=== PATIENT | female | born 1935 | race Caucasian/White ===

== ENCOUNTER → 2023-04-14 10:21 | Outpatient (REF) | payer MEDICARE, SELFPAY ==
[2023-04-14 11:46] LABS: % Basophils 0.9 % (0-2); % Eosinophils 2.9 % (0-6); % Immature Granulocytes 0.3 % (0-0.5); % Lymphocytes 17.4 % (20.5-51.1); % Monocytes 9.9 % (1.7-9.3); % Neutrophils 68.6 % (42.2-75.2); Absolute Basophils 0.1 10^3/uL (0-0.2); Absolute Eosinophils 0.3 10^3/uL (0-0.7); Absolute Lymphocytes 1.6 10^3/uL (1.2-3.4); Absolute Monocytes 0.9 10^3/uL (0.1-0.6); Absolute Neutrophils 6.2 10^3/uL (1.4-6.5); Hematocrit 28.2 % (37.0-47.0); Hemoglobin 8.6 g/dL (12.0-16.0); Mean Corp Hgb Conc. 30.5 g/dL (33.0-37.0); Mean Corpuscular Hgb 23.5 pg (27.0-31.0); Nucleated Red Blood Cells % 0.2 %; Platelet Count 327 10^3/uL (130-400); Red Blood Cell Count 3.66 10^6/uL (4.20-5.40); Red Cell Dist. Width 17.2 % (11.5-14.5)
[2023-04-14 12:13] LABS: ALT (SGPT) 13 U/L (0-35); AST (SGOT) 22 U/L (14-36); Albumin 3.9 g/dl (3.5-5.0); Alkaline Phosphatase 115 U/L (38-126); Blood Urea Nitrogen 25 mg/dl (7-17); Calcium 9.5 mg/dl (8.4-10.2); Carbon Dioxide 25 mmol/L (22-30); Chloride 102 mmol/L (98-107); Glucose 104 mg/dl (70-99); HDL Cholesterol 64 mg/dl; LDL Cholesterol, Calculated 93 mg/dl; Potassium 5.6 mmol/L (3.5-5.1); Sodium 136 mmol/L (135-145); Total Bilirubin 0.7 mg/dl (0.2-1.3); Total Cholesterol 177 mg/dl (50-199); Total Protein 6.6 g/dl (6.3-8.2); Triglyceride 100 mg/dl (10-149); Very Low Density Lipoprotein 20 mg/dl (0-30); eGFR > 60.00
[2023-04-15 12:17] LABS: Iron 28 ug/dl (37-170)
[2023-04-15 12:26] LABS: Percent Saturation 5 % (20-50); Total Iron Binding Capacity 477 ug/dl (265-497)
[2023-04-15 15:34] LABS: Ferritin 7.6 ng/ml (11.1-264.0)
== END ==
LOC: REG 10:21
PROVIDERS: ATTENDING PHYSICIAN Internal Medicine
DX: I10 Essential (primary) hypertension (principal); E78.5 Hyperlipidemia, unspecified; R53.83 Other fatigue
CPT/HCPCS: 36415; 80053; 80061; 82728; 83540; 83550; 85025

== ENCOUNTER → 2023-04-16 09:27 | Outpatient (REF) | payer MEDICARE, SELFPAY | LOC: DHCBS MAIN 09:27 | PROVIDERS: ATTENDING PHYSICIAN Internal Medicine Cardiovascular Disease; FAMILY PHYSICIAN Internal Medicine | DX: I10 Essential (primary) hypertension (principal) | CPT/HCPCS: 93306 ==

== ENCOUNTER → 2023-05-19 11:23 | Outpatient (REF) | payer MEDICARE, SELFPAY ==
[2023-05-19 12:19] LABS: % Basophils 0.9 % (0-2); % Eosinophils 2.5 % (0-6); % Immature Granulocytes 0.3 % (0-0.5); % Lymphocytes 14.8 % (20.5-51.1); % Monocytes 7.5 % (1.7-9.3); Absolute Basophils 0.1 10^3/uL (0-0.2); Absolute Eosinophils 0.2 10^3/uL (0-0.7); Absolute Lymphocytes 1.1 10^3/uL (1.2-3.4); Absolute Monocytes 0.6 10^3/uL (0.1-0.6); Absolute Neutrophils 5.7 10^3/uL (1.4-6.5); Hemoglobin 10.8 g/dL (12.0-16.0); Mean Corpuscular Hgb 24.8 pg (27.0-31.0); Mean Corpuscular Volume 82.6 fL (81.0-99.0); Mean Platelet Volume 11.6 fL (7.4-10.4); Nucleated Red Blood Cells % 0 %; Platelet Count 328 10^3/uL (130-400); Red Blood Cell Count 4.36 10^6/uL (4.20-5.40); Red Cell Dist. Width 22.7 % (11.5-14.5); White Blood Cell Count 7.6 10^3/uL (4.8-10.8)
[2023-05-19 13:06] LABS: Total Iron Binding Capacity 393 ug/dl (265-497)
[2023-05-19 13:09] LABS: Anisocytosis 1+; Normal RBC Morphology No; Poikilocytosis 1+
[2023-05-19 13:10] LABS: Burr Cells Slight; Target Cells Slight
[2023-05-19 13:33] LABS: Ferritin 19.7 ng/ml (11.1-264.0)
== END ==
LOC: REG 11:23
PROVIDERS: ATTENDING PHYSICIAN Internal Medicine
DX: D64.9 Anemia, unspecified (principal)
CPT/HCPCS: 36415; 82728; 83550; 85025

== ENCOUNTER 2023-06-12 21:21 | Inpatient (IN) | payer MEDICARE, SELFPAY ==
[2023-06-12] VITALS (7 sets, daily range): BP systolic 106–127; BP diastolic 67–94; BMI 25.8
[2023-06-12 17:04] LABS: % Basophils 0.8 % (0-2); % Eosinophils 1.6 % (0-6); % Immature Granulocytes 0.3 % (0-0.5); % Lymphocytes 14.6 % (20.5-51.1); % Neutrophils 73.7 % (42.2-75.2); Absolute Basophils 0.1 10^3/uL (0-0.2); Absolute Eosinophils 0.2 10^3/uL (0-0.7); Absolute Lymphocytes 1.4 10^3/uL (1.2-3.4); Absolute Monocytes 0.9 10^3/uL (0.1-0.6); Absolute Neutrophils 7.2 10^3/uL (1.4-6.5); Hematocrit 34.4 % (37.0-47.0); Hemoglobin 10.7 g/dL (12.0-16.0); Mean Corp Hgb Conc. 31.1 g/dL (33.0-37.0); Mean Corpuscular Hgb 25.5 pg (27.0-31.0); Mean Corpuscular Volume 82.1 fL (81.0-99.0); Mean Platelet Volume 10.5 fL (7.4-10.4); Nucleated Red Blood Cells % 0 %; Platelet Count 389 10^3/uL (130-400); Red Blood Cell Count 4.19 10^6/uL (4.20-5.40); Red Cell Dist. Width 21.3 % (11.5-14.5); White Blood Cell Count 9.7 10^3/uL (4.8-10.8)
[2023-06-12 17:26] LABS: ALT (SGPT) 43 U/L (0-35); AST (SGOT) 54 U/L (14-36); Albumin 4.5 g/dl (3.5-5.0); Alkaline Phosphatase 131 U/L (38-126); Blood Urea Nitrogen 30 mg/dl (7-17); Calcium 9.7 mg/dl (8.4-10.2); Carbon Dioxide 19 mmol/L (22-30); Glucose 135 mg/dl (70-99); Total Bilirubin 0.7 mg/dl (0.2-1.3); Total Protein 7.2 g/dl (6.3-8.2); eGFR 54.87
[2023-06-12 17:35] LABS: Chloride 101 mmol/L (98-107); Potassium 5.4 mmol/L (3.5-5.1); Sodium 134 mmol/L (135-145)
[2023-06-12 18:38] LABS: D-Dimer 1.33 ug/mlFEU (0.00-0.50)
[2023-06-12] MEDS: CARDIZEM CD 120 MG PO (19:06)
[2023-06-12] MEDS: NSS 500 IV (19:06)
[2023-06-12 19:28] LABS: TSH Reflex To Free T4 4.67 uIU/ml (0.47-4.68)
--- NOTE | 2023-06-12 19:52 | ED.GENMED ---
History of Present Illness
General
Chief Complaint: Weakness
Source: patient
Exam Limitations: none
Time Seen by Provider: 06/12/23 18:19
Nursing documentation reviewed up to this point in time: agreed with
Travel History
Have you had any contact with someone who has COVID-19?: No
Do you have any symptoms of coronavirus? Fever > 100 degrees, chills, cough, shortness of breath, sore throat, loss of taste or smell, muscle aches, or headache?: No
History of Present Illness
History of Present Illness:
88-year-old female with past medical history of A-fib currently on Xarelto diltiazem and metoprolol, hypertension hyperlipidemia presenting to the emergency department today with concerns of feeling generally weak over the past 5 to 6 days. She
denies any changes in medications has had an ongoing cough. Primary care doctor was concerned of PE. Denies nausea vomiting or additional recent illness did have a mild cough recently.
Past History
Past History
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
ED Past Surgical History: Appendectomy and Other (Colonoscopy)
Social History
Tobacco: Non-smoker
Alcohol: None
Personal:
Living: with family
Employment: Retired
Family History
Family History: Other (Noncontributory)
Review of Systems
Review of Systems
Allergies reviewed?: Yes
All Other Systems: ROS reviewed and negative except as documented in HPI and ROS
Phy Exam
Physical Exam
Physical Exam:
GENERAL: Alert , in no apparent distress
EYE: pupils equal and reactive
NECK: Supple, no significant adenopathy.
ENT: o/p clr, mmm.
CARDIAC: Regular rate and rhythm .
LUNGS: Clear breath sounds bilaterally, no acute respiratory distress, no wheezes/rales/rhonchi
ABDOMEN: Soft, without focal tenderness, no r/g, no cvat
NEUROLOGICAL: Alert and oriented, no focal neuro deficits
SKIN: Warm and dry, skin intact.
MUSCULOSKELETAL: No edema, well perfused.
PSYCH: Normal and appropriate interaction.
Course
Orders/Labs/Results
Orders:
Orders
06/12/23 16:51
EKG [Electrocardiogram (*1)] Urgent
Reason for Study: Fatigue / Weakness
06/12/23 16:52
EKG- Treatment ONCE
06/12/23 16:59
CBC/With Diff [Complete Blood Count/With Diff] Urgent
CMP [Comprehensive Metabolic Panel] Urgent
TSH Reflex To Free T4 Urgent
Comment: ADD ON
06/12/23 18:00
D-Dimer Urgent
06/12/23 18:21
Add On- LAB Urgent
Tests Added?: tsh free t4
06/12/23 18:[address] [CT Chest Pe Study] Urgent
Comment:
Reason For Exam: cp, sob, tachy, PCP snet in for PE scan
06/12/23 18:41
Diltiazem Extended Release [Cardizem Cd] 120 mg PO NOW STA
06/12/23 18:42
0.9% Sodium Chloride 500 ml [Nss] 500 ml IV BOLUS
06/12/23 19:47
NT-proBNP Urgent
Comment: ADD ON
Troponin I Urgent
06/12/23 20:11
Electrocardiogram (*1) Urgent
Reason for Study: QTc Monitoring
EKG- Treatment ONCE
06/12/23 20:17
Add On- LAB Urgent
Tests Added?: BNP
06/12/23 20:18
Urinalysis Reflex To Culture Urgent
Date Specimen was Collected: 06/12/23
Time Specimen was Collected: 20:17
Urine Microscopic Reflex Cult Urgent
Urine Culture Urgent
TANNER Source: U
Specimen Description:
Date Specimen was Collected: 06/12/23
Time Specimen was Collected: 20:17
06/12/23 20:21
Furosemide [Lasix] 40 mg IV NOW STA
Abnormal Lab Results
06/12/23 06/12/23 06/12/23
16:59 18:00 20:18
RBC 4.19 L 10^6/uL
(4.20-5.40)
Hgb 10.7 L g/dL
(12.0-16.0)
Hct 34.4 L %
(37.0-47.0)
MCH 25.5 L pg
(27.0-31.0)
MCHC 31.1 L g/dL
(33.0-37.0)
RDW 21.3 H %
(11.5-14.5)
MPV 10.5 H fL
(7.4-10.4)
Absolute Neuts (auto) 7.2 H 10^3/uL
(1.4-6.5)
Absolute Monos (auto) 0.9 H 10^3/uL
(0.1-0.6)
Lymphocytes % 14.6 L %
(20.5-51.1)
D-Dimer 1.33 H ug/mlFEU
(0.00-0.50)
Sodium 134 L mmol/L
(135-145)
Potassium 5.4 H mmol/L
(3.5-5.1)
Carbon Dioxide 19 L mmol/L
(22-30)
BUN 30 H mg/dl
(7-17)
Glucose 135 H mg/dl
(70-99)
AST 54 H U/L
(14-36)
ALT 43 H U/L
(0-35)
Alkaline Phosphatase 131 H U/L
(38-126)
Leukocyte Esterase Rfl 1+ A
(Negative)
06/12/23 16:59
06/12/23 16:59
Vital Signs
Initial and Last Documented VS:
Initial Vital Signs
Temp Pulse Resp BP Pulse Ox
98.1 F 129 17 127/71 97
06/12/23 16:53 06/12/23 16:53 06/12/23 16:53 06/12/23 16:53 06/12/23 16:53
Last Documented Vital Signs
Temp Pulse Resp BP Pulse Ox
98.1 F 118 32 119/67 97
06/12/23 16:53 06/12/23 20:26 06/12/23 20:15 06/12/23 20:26 06/12/23 20:15
MDM/Problems Addressed
MDM/Problems Addressed:
88-year-old female presenting to the emergency department today with concerns of generalized weakness fatigue over the past 5 days or so. Upon arrival patient is mildly tachycardic in A-fib heart rate in the 120s to 90s. Hemoglobin 10.7 which is
at patient's baseline otherwise labs showing elevated BUN to creatinine ratio potentially consistent with dehydration she was given fluids for this potassium elevated to 5.4. EKG without acute abnormalities other than tachycardia, in A-fib, in
A-fib chronically. Heart rate typically in the low 100s throughout ER stay labs initially showed elevated BUN given the small amount of fluids however CT scan showing edema so fluids were stopped. She was given Lasix otherwise will be admitted for
further treatment and monitoring.
*Critical Care Note
Total Time (30-74mins, 75-104mins- exclusive of procedures): Critical care statement:
ED Attending Note
-
Portions of this chart may have been created with voice recognition software.� Occasional wrong word or��sound alike� substitutions may have occurred due to the inherent limitations of voice recognition software.
Discharge Plan
Departure
Patient Disposition: Admit
Date of Disposition: 06/12/23
Time of Disposition: 20:38
Admit to: Telemetry
Admit to doctor: pooja
Presentation/result/management discussed w/ accepting MD/DO: Hospitalist
Patient with high blood pressure during this ER visit?: No
Condition: Good
Covid-19: Not Applicable
Discharge Problem:
Heart failure
Prescriptions:
No Action
Prilosec
1 tab PO DAILY
Patient Comments:
otc
acetaminophen [Tylenol] 325 MG tablet
325 mg PO PRN PRN (Reason: pain)
atorvastatin 10 MG tablet
10 mg PO QPM
lorazepam 0.5 MG tablet
0.5 mg PO HS
diltiazem HCl 120 MG capsule,extended release 24hr
120 mg PO DAILY
doxylamine succinate [Somnised] 25 MG tablet
25 mg PO HS
escitalopram oxalate 10 MG tablet
15 mg PO DAILY
metoprolol tartrate 25 MG tablet
25 mg PO DAILY
rivaroxaban [Xarelto] 15 MG tablet
15 mg PO QPM
promethazine 25 MG tablet
12.5 mg PO Q6HPRN PRN (Reason: nausea) Qty: 10 0RF
polyethylene glycol 3350 238 GM powder
17 gm PO DAILY Qty: 1 0RF
Referrals:
Stefanie Nieves MD [Family Provider] -
Interventions
Interventions:
*Risk Screen - Suicide Last Done: 06/12/23 16:53
*General Assessment Last Done: 06/12/23 16:53
*Neglect/Abuse Screening Last Done: 06/12/23 16:53
ED- Fall Risk Assessment Last Done: 06/12/23 18:55
*ED COVID-19 Vaccine History Last Done: 06/12/23 16:53
ED- Cardiac Assessment Last Done: 06/12/23 18:55
ED- Neurological Assessment Last Done: 06/12/23 18:55
ED- Pulmonary Assessment Last Done: 06/12/23 18:55
Discharge Date and Time
Print Language: ARMENIAN
[2023-06-12 20:22] LABS: Troponin I < 0.012 ng/ml
[2023-06-12] MEDS: LASIX 40 MG IV (20:26)
[2023-06-12 20:29] LABS: Urine Albumin Trace (Neg - Trace); Urine Bilirubin Negative (Negative); Urine Character Clear (Clear); Urine Color Yellow; Urine Glucose Negative (Negative); Urine Ketone Negative (Negative); Urine Leukocyte 1+ (Negative); Urine Nitrite Negative (Negative); Urine Occult Blood Negative (Negative); Urine Specific Gravity 1.015 (<1.030); Urine Urobilinogen Negative (Neg - 1+)
[2023-06-12 20:44] LABS: Urine Bacteria Few (Negative); Urine Red Blood Cell 0-2 /HPF (0-2); Urine Squamous Cell >30 /LPF (Few)
[2023-06-12 20:51] LABS: NT-proBNP 17300 pg/ml
--- NOTE | 2023-06-12 21:16 | HPS.HSE ---
Family Physician
-
Family Physician: Stefanie Nieves
Chief Complaint
-
SOB, Fatigue
History of Present Illness
Patient is an 88y F with PMH significant for A-Fib, HTN and anxiety who presents to ED complaining of fatigue, SOB and general malaise. History obtained from patient and family at the bedside. Patient has been complaining of generalized
weakness since early March of this year. She started with fairly vague symptoms of weakness / fatigue. She was seen by her Substation Operator Chief and Echo was done in March which was only minimally changed from prior (LVEF decreased from 45 to 40%).
Patient was also evaluated by her PCP and noted to have evidence of anemia. She was started on empiric iron replacement and seemed to note some clinical improvement.
However, over the past 1-2 weeks family has noted a rather significant decline. Patient has again had general fatigue and has also been noted to have increased work of breathing, dyspnea with exertion and appears pale.
Patient was seen by her PCP today and reportedly had low SpO2 in the office. She was sent to ED for further evaluation.
While in the ED, patient apparently had an episode of syncope / near syncope. She was in the bathroom when she became lightheaded / dizzy and diaphoretic. She slumped backwards against the wall but did not fall or completely lose consciousness.
At present, patient is resting comfortably. She has no complaints of chest pain, palpitations, etc. She reports chronic / persistent nausea and relatively poor appetite. No emesis.
No fevers / chills, cough, etc.
Medical History
Past Medical History
Past Medical History: Reports Other
Additional Past Medical History:
Persistent Atrial Fibrillation
Hypertension
Anxiety / Depression
Dyslipidemia
Peripheral Neuropathy
Past Surgical History: Reports Other
Additional Past Surgical History:
Appendectomy
Social History
Tobacco: Smoker (Current every day smoker. Approx 1/2 ppd with total of > 60 pack years use.)
Alcohol: Occasional
Drug: None
Family History
Family History: Not pertinent
Allergies / Home Medications
Allergies reflects when Allergies were last updated in [facility].
Home Medications with original date entered in [facility]
Allergy/Medication List:
Allergies
Allergy/AdvReac Type Severity Reaction Status Date / Time
bacitracin [From Neosporin] Allergy MAKES WORSE Verified 02/06/19 09:32
bacitracin zinc Allergy MAKES WORSE Verified 02/06/19 09:32
[From Neosporin]
gramicidin D [From Neosporin] Allergy MAKES WORSE Verified 02/06/19 09:32
neomycin sulfate Allergy MAKES WORSE Verified 02/06/19 09:32
[From Neosporin]
Penicillins Allergy SWELLING,LUMPS-AGE Verified 02/06/19 09:32
16
polymyxin B [From Neosporin] Allergy MAKES WORSE Verified 02/06/19 09:32
polymyxin B sulfate Allergy MAKES WORSE Verified 02/06/19 09:32
[From Neosporin]
Home Medications
atorvastatin 10 mg tablet 10 mg PO QPM 10/01/18
diltiazem HCl 120 mg capsule,extended release 24 hr 120 mg PO QPM 10/01/18
lorazepam 0.5 mg tablet 0.5 mg PO BID 10/01/18
rivaroxaban 15 mg tablet (Xarelto) 15 mg PO QPM 10/01/18
doxylamine succinate 25 mg tablet (Unisom (doxylamine)) 25 mg PO HS 06/12/23
ferrous sulfate 325 mg (65 mg iron) tablet 325 mg PO DAILY 06/12/23
guar gum 1 tbsp PO DAILY 06/12/23
lamotrigine 25 mg tablet (Lamictal) 25 mg PO BID 06/12/23
metoprolol succinate 50 mg tablet,extended release 24 hr (Toprol XL) 50 mg PO DAILY 06/12/23
omeprazole magnesium 20 mg tablet,delayed release 40 mg PO DAILY 06/12/23
therapeutic multivitamin 1 tab PO DAILY 06/12/23
venlafaxine 75 mg capsule,extended release 24 hr (Effexor XR) 75 mg PO HS 06/12/23
venlafaxine 75 mg capsule,extended release 24 hr (Effexor XR) 150 mg PO DAILY 06/12/23
Review of Systems
-
History Source: Patient and Family
A 12 point ROS was completed and negative except as noted: Yes
Constitutional: Reports Fatigue; Denies Fever or Chills
EENT: Denies Sore Throat
Respiratory: Reports Trouble Breathing; Denies Cough
Cardiac: Reports Diaphoresis; Denies Chest Pain, Palpitations or Syncope
Abdomen/GI: Reports Nausea and Anorexia; Denies Abdominal Pain, Vomiting, Diarrhea or Constipated
: Denies Dysuria or Frequency
Musculoskeletal: Denies Joint Pain or Edema
Neurological: Reports Dizzy; Denies Headache
Psych: Reports Depression and Anxiety
Physical Exam
Vital Signs
Vital Signs
Temp Pulse Resp BP Pulse Ox
98.1 F 118 32 119/67 97
06/12/23 16:53 06/12/23 20:26 06/12/23 20:15 06/12/23 20:26 06/12/23 20:15
Physical Exam
General: Other (88y F pale appearing, in no acute distress.)
HEENT: Moist mucous membranes and PERRLA
Respiratory: Other (Bibasilar rales about 1/3 up. No wheeze / rhonchi.)
Cardiac: S1/S2 and Irregular Rhythm; No Murmur
GI: Soft, Non Tender, Non Distended and Normal Bowel Sounds
Musculoskeletal: No Clubbing, No Cyanosis and No Edema
Neuro: AO x 3 and Nonfocal/grossly intact
Laboratory Results
-
06/12/23 16:59
06/12/23 16:59
Laboratory Results
Total Bilirubin 0.7 mg/dl (0.2-1.3) 06/12/23 16:59
AST 54 U/L (14-36) H 06/12/23 16:59
ALT 43 U/L (0-35) H 06/12/23 16:59
Alkaline Phosphatase 131 U/L (38-126) H 06/12/23 16:59
Troponin I < 0.012 ng/ml 06/12/23 19:47
Impression/Plan
-
A/P: Patient is an 88y F with PMH significant for A-Fib, HTN and anxiety / depression who presents to ED complaining of fatigue, SOB and weakness.
Acute HFmrEF
- Admit for further evaluation and treatment.
- Reported hypoxemia in PCP office, though normal SpO2 here in the ED.
- CT scan shows R > L pleural effusions and pulmonary edema c/w CHF.
- Abnormal LFTs c/w passive hepatic congestion.
- No significant LE edema / abdominal distention / etc.
- Echo was done 04/16/23 showing LVEF = 40-45%.
- IV Lasix BID and follow I/Os, daily weights, symptoms, etc.
- Cardiology evaluation or additional recommendations.
- Hold BRYCE / ARB for now given hyperkalemia.
- Hold spironolactone for now given hyperkalemia.
Persistent Atrial Fibrillation
- Stable. Rates around 100 bpm.
- Continue metoprolol and increase dose for HR control.
- Decrease / discontinue CCB if possible in favor of increased beta-blockade to prevent negative ionotropy.
- Monitor on telemetry.
- Continue Xarelto for stroke risk reduction.
Benign Hypertension
- Stable. Continue metoprolol as noted above.
- Monitor for changes with diuresis.
Anxiety / Depression
- Stable. Continue current outpatient psychotropic medication regimen.
DVT Prophylaxis: On Xarelto
Code Status: DNR
[2023-06-12] MEDS: EFFEXOR XR 75 MG PO (23:16)
[2023-06-13] VITALS (26 sets, daily range): BP systolic 79–134; BP diastolic 54–88; PULSE 92–99; BMI 24.1; BMI 23.9
[2023-06-13 00:38] LABS: Iron 428 ug/dl (37-170)
[2023-06-13 00:45] LABS: Troponin I 0.017 ng/ml
[2023-06-13 00:48] LABS: Percent Saturation 101 % (20-50); Total Iron Binding Capacity 422 ug/dl (265-497)
[2023-06-13 03:19] LABS: Vitamin B12 370 pg/ml (239-931)
[2023-06-13 06:59] LABS: Hematocrit 31.3 % (37.0-47.0); Hemoglobin 10.4 g/dL (12.0-16.0); Mean Corp Hgb Conc. 33.2 g/dL (33.0-37.0); Mean Corpuscular Hgb 25.4 pg (27.0-31.0); Mean Corpuscular Volume 76.5 fL (81.0-99.0); Mean Platelet Volume 10.8 fL (7.4-10.4); Platelet Count 368 10^3/uL (130-400); Red Blood Cell Count 4.09 10^6/uL (4.20-5.40); Red Cell Dist. Width 21.2 % (11.5-14.5); White Blood Cell Count 9.7 10^3/uL (4.8-10.8)
[2023-06-13 07:12] LABS: ALT (SGPT) 66 U/L (0-35); AST (SGOT) 84 U/L (14-36); Albumin 4.1 g/dl (3.5-5.0); Alkaline Phosphatase 178 U/L (38-126); Blood Urea Nitrogen 28 mg/dl (7-17); Calcium 9.3 mg/dl (8.4-10.2); Carbon Dioxide 18 mmol/L (22-30); Chloride 103 mmol/L (98-107); Direct Bilirubin 0.4 mg/dl (0.0-0.4); Estimated Creatinine Clearance 39 ml/min; Glucose 98 mg/dl (70-99); Potassium 5.4 mmol/L (3.5-5.1); Sodium 134 mmol/L (135-145); Total Bilirubin 0.8 mg/dl (0.2-1.3); Total Cholesterol 162 mg/dl (50-199); Total Protein 6.9 g/dl (6.3-8.2); Triglyceride 95 mg/dl (10-149); Very Low Density Lipoprotein 19 mg/dl (0-30); eGFR > 60.00
[2023-06-13 07:23] LABS: Troponin I 0.017 ng/ml
[2023-06-13] MEDS: LAMICTAL 25 MG PO ×2 (08:42→21:08)
[2023-06-13] MEDS: PROTONIX 40 MG PO (08:42)
[2023-06-13] MEDS: LASIX 20 MG IV ×2 (08:42→16:11)
[2023-06-13] MEDS: TOPROL XL 50 MG PO ×2 (08:43→21:10)
[2023-06-13] MEDS: ATIVAN 0.5 MG PO ×2 (08:43→21:10)
--- NOTE | 2023-06-13 11:47 | CON.CAR ---
Addendum entered and electronically signed by Louisa Taylor DO 06/13/23 13:58:
I saw and examined the patient.
The Clearing [employer] Worker's note was reviewed and I agree with the note.
Comment: Seen and examined in ED bed 20 with daughter at bedside. Patient is an 88-year-old female with past medical history significant for permanent atrial fibrillation on chronic anticoagulation with Xarelto, chronic heart failure with reduced
ejection fraction, hypertension, left bundle branch block, mild mitral regurgitation, tobacco abuse who presented to emergency department 06/12/2023 with family after complaints of generalized malaise, fatigue and shortness of breath. Patient had
been at her primary care physician who had noted her to be short of breath and hypoxic and was sent to the emergency department for evaluation. proBNP elevated at 17,300. CT chest demonstrated bilateral pleural effusions right greater than left
with interstitial pulmonary edema and moderate to large paraesophageal hiatal hernia. LFTs and potassium were noted to be elevated. Troponin x 2 negative. EKG showed atrial fibrillation with rapid ventricular response. Patient was provided 40 mg
IV in emergency department. Of note while in the emergency department patient did have near syncopal event which occurred while she was in the bathroom and she became dizzy lightheaded and diaphoretic. She slumped backwards against the wall but
did not fall or lose consciousness.
GEN: No distress, awake, Ox3
HEENT: mmm
LUNGS: Decreased breath sounds at bilateral bases with few scattered crackles otherwise CTA, no wheezes/rales
CV: Irregularly irregular, tachycardic, S1/S2, 1/6 syst murmur
ABD: soft, BS+, NT/ND
EXT: Trace lower extremity edema
Plan:
Presented 06/12/2023 with generalized malaise, fatigue and shortness of breath.
Acute on chronic heart failure with reduced ejection fraction, proBNP 17,300
-Continue gentle diuresis with IV Lasix 20 mg BID
-Patient reports she is feeling significantly better with improved shortness of breath and is making good urine.
-Kidney function stable BUN/creatinine 28/ 0.9
-Recent echo from March 2023 noted above. No need to repeat
-Continue Toprol
-Consider addition of BRYCE inhibitor if potassium improved
Permanent atrial fibrillation
-Heart rate initially elevated on presentation however has improved with diuresis
-Continue metoprolol for rate control
-Continue on chronic anticoagulation on Xarelto 15 mg daily (creatinine clearance 45 based on age, weight 139, creatinine 0.9)
-TSH 4.61
Iron deficiency anemia on Xarelto
-Heme check stools
Abnormal LFTs
-Likely passive hepatic congestion.
-Continue to monitor and trend with diuresis
Electrolyte disturbance
-Hyperkalemia K 5.4. Monitor and trend with diuresis
-Sodium 134, continue to monitor and trend with diuresis
Near syncopal event in emergency department
-Orthostatic vitals checked 06/13/2023 supine 100/70, sitting 122/85, standing 79/65.
-Consider utilizing compression stockings
-PT OT assessment
Original Note:
Consultation
Consultation Request
Date/Time Consultation Requested: 06/12/2023
Date/Time Consultation Performed: 06/13/2023
Requesting Provider: Dr. Self
Performing Provider: Caitlin Buchanan PA-C for Dr. Louisa Taylor
Reason for Consultation: Shortness of breath, acute heart failure
Medical History
-
History of Present Illness:
Patient is an 88-year-old female with past medical history significant for permanent atrial fibrillation on chronic anticoagulation with Xarelto, chronic heart failure with reduced ejection fraction, hypertension, left bundle branch block, mild
mitral regurgitation, tobacco abuse who presented to emergency department 06/12/2023 with family after complaints of generalized malaise, fatigue and shortness of breath. Patient had been at her primary care physician who had noted her to be short
of breath and hypoxic and was sent to the emergency department for evaluation. proBNP elevated at 17,300. CT chest demonstrated bilateral pleural effusions right greater than left with interstitial pulmonary edema and moderate to large
paraesophageal hiatal hernia. LFTs and potassium were noted to be elevated. Troponin x 2 negative. EKG showed atrial fibrillation with rapid ventricular response. Patient was provided 40 mg IV in emergency department. Of note while in the
emergency department patient did have near syncopal event which occurred while she was in the bathroom and she became dizzy lightheaded and diaphoretic. She slumped backwards against the wall but did not fall or lose consciousness.
At the time of this evaluation patient resting comfortably in bed not requiring oxygen. She reports her shortness of breath has improved significantly. She reports she is making good urine.
PMH:
Permanent Atrial Fibrillation
Chronic anticoagulation with Xarelto
Hypertension
Left bundle branch block
Mitral regurgitation
Tobacco abuse
GERD with hiatal hernia
Anxiety / Depression
Dyslipidemia
Peripheral Neuropathy
Bowel obstruction 2019
Appendectomy
Past Medical History
Past Medical History: Other (See HPI)
Past Surgical History: Appendectomy
Social History
Tobacco: Smoker (Currently light smoker, greater than [id number] history)
Alcohol: Occasional
Drug: None
Personal:
Living: With Family
Family History
Family History: CAD, Cancer and Hypertension
Allergies / Home Medications
Allergy/AdvReac Type Severity Reaction Status Date / Time
bacitracin [From Neosporin] Allergy MAKES WORSE Verified 02/06/19 09:32
bacitracin zinc Allergy MAKES WORSE Verified 02/06/19 09:32
[From Neosporin]
gramicidin D [From Neosporin] Allergy MAKES WORSE Verified 02/06/19 09:32
neomycin sulfate Allergy MAKES WORSE Verified 02/06/19 09:32
[From Neosporin]
Penicillins Allergy SWELLING,LUMPS-AGE Verified 02/06/19 09:32
16
polymyxin B [From Neosporin] Allergy MAKES WORSE Verified 02/06/19 09:32
polymyxin B sulfate Allergy MAKES WORSE Verified 02/06/19 09:32
[From Neosporin]
�Medication �Instructions �Recorded �Confirmed �Type
atorvastatin 10 mg tablet 10 mg PO QPM 10/01/18 06/12/23 History
diltiazem HCl 120 mg 120 mg PO QPM 10/01/18 06/12/23 History
capsule,extended release 24 hr
lorazepam 0.5 mg tablet 0.5 mg PO BID 10/01/18 06/12/23 History
rivaroxaban 15 mg tablet (Xarelto) 15 mg PO QPM 10/01/18 06/12/23 History
doxylamine succinate 25 mg tablet 25 mg PO HS 06/12/23 06/12/23 History
(Unisom (doxylamine))
ferrous sulfate 325 mg (65 mg 325 mg PO DAILY 06/12/23 06/12/23 History
iron) tablet
guar gum 1 tbsp PO DAILY 06/12/23 06/12/23 History
lamotrigine 25 mg tablet (Lamictal) 25 mg PO BID 06/12/23 06/12/23 History
metoprolol succinate 50 mg 50 mg PO DAILY 06/12/23 06/12/23 History
tablet,extended release 24 hr
(Toprol XL)
omeprazole magnesium 20 mg 40 mg PO DAILY 06/12/23 06/12/23 History
tablet,delayed release
therapeutic multivitamin 1 tab PO DAILY 06/12/23 06/12/23 History
venlafaxine 75 mg capsule,extended 75 mg PO HS 06/12/23 06/12/23 History
release 24 hr (Effexor XR)
venlafaxine 75 mg capsule,extended 150 mg PO DAILY 06/12/23 06/12/23 History
release 24 hr (Effexor XR)
Review of Systems
-
History Source: Patient
All other systems: Negative unless noted
Physical Exam
Vital Signs
Temp Pulse Resp BP Pulse Ox
98 F 88 18 130/88 94
06/13/23 08:51 06/13/23 08:51 06/13/23 08:51 06/13/23 08:51 06/13/23 08:51
GEN: No distress, awake, Ox3
HEENT: supple, anicteric, mmm
LUNGS: Decreased breath sounds at bilateral bases with few scattered crackles otherwise CTA, no wheezes/rales
CV: Irregularly irregular, tachycardic, S1/S2, 1/6 syst murmur no rubs or gallops
ABD: soft, BS+, NT/ND
EXT: Trace lower extremity edema, no clubbing or cyanosis
NEURO: Gross non-focal
SKIN: No rash warm, dry, pink
Lab Results
06/13/23 06:44
06/13/23 06:43
Troponin I 0.017 ng/ml 06/13/23 06:44
Wrc-B-Dcyiffuqicj Pept 59305 pg/ml 06/12/23 19:47
Impression / Plan
-
PCP: Stefanie Nieves
[employer] Dr. Joanna Argueta
Impression:
Presented 06/12/2023 with generalized malaise, fatigue and shortness of breath
Acute on chronic heart failure with reduced ejection fraction, proBNP 17,300
Abnormal LFTs
Electrolyte disturbance
Near syncopal event in emergency department
Permanent Atrial Fibrillation
Chronic anticoagulation with Xarelto
Hypertension
Left bundle branch block
Mitral regurgitation
Chronic anemia
Tobacco abuse
GERD with hiatal hernia
Anxiety / Depression
Dyslipidemia
Peripheral Neuropathy
Bowel obstruction 2018
Appendectomy
Lexiscan nuclear stress test 03/21/2022: No fixed or reversible defects.
Echo 04/16/2023: TDS with endocardial definition. EF 41% by Cordon method, 40 to 45% by visual assessment. Mild global hypokinesis. Abnormal paradoxical septal motion consistent with left bundle branch block. Mild to moderate MR. Mild TR. PAP
34 mmHg. Compared to study February 2022 ejection fraction has declined slightly from 45 to 50% prior
cardiac catheterization 05/2015 with 20% RCA lesion and normal LV function
Plan:
Presented 06/12/2023 with generalized malaise, fatigue and shortness of breath.
Acute on chronic heart failure with reduced ejection fraction, proBNP 17,300
-Continue gentle diuresis with IV Lasix 20 mg BID. Consider transition to oral Lasix within next 24 hours
-Patient reports she is feeling significantly better with improved shortness of breath and is making good urine.
-Kidney function stable BUN/creatinine 28/ 0.9
-Recent echo from March 2023 noted above. No need to repeat
-Continue Toprol
-Consider addition of BRYCE inhibitor if potassium improved
Permanent atrial fibrillation
-Heart rate initially elevated on presentation however has improved with diuresis
-Continue metoprolol for rate control
-Continue on chronic anticoagulation on Xarelto 15 mg daily (creatinine clearance 45 based on age, weight 139, creatinine 0.9)
-TSH 4.61
Abnormal LFTs
-Likely passive hepatic congestion.
-Continue to monitor and trend with diuresis
Electrolyte disturbance
-Hyperkalemia K 5.4. Monitor and trend with diuresis
-Sodium 134, continue to monitor and trend with diuresis
Near syncopal event in emergency department
-Orthostatic vitals checked 06/13/2023 supine 100/70, sitting 122/85, standing 79/65.
-Consider utilizing compression stockings
-PT OT assessment
HPI 06/13/23:
Patient is an 88-year-old female with past medical history significant for permanent atrial fibrillation on chronic anticoagulation with Xarelto, chronic heart failure with reduced ejection fraction, hypertension, left bundle branch block, mild
mitral regurgitation, tobacco abuse who presented to emergency department 06/12/2023 with family after complaints of generalized malaise, fatigue and shortness of breath. Patient had been at her primary care physician who had noted her to be short
of breath and hypoxic and was sent to the emergency department for evaluation. proBNP elevated at 17,300. CT chest demonstrated bilateral pleural effusions right greater than left with interstitial pulmonary edema and moderate to large
paraesophageal hiatal hernia. LFTs and potassium were noted to be elevated. Troponin x 2 negative. EKG showed atrial fibrillation with rapid ventricular response. Patient was provided 40 mg IV in emergency department. Of note while in the
emergency department patient did have near syncopal event which occurred while she was in the bathroom and she became dizzy lightheaded and diaphoretic. She slumped backwards against the wall but did not fall or lose consciousness.
At the time of this evaluation patient resting comfortably in bed not requiring oxygen. She reports her shortness of breath has improved significantly. She reports she is making good urine.
[2023-06-13] MEDS: EFFEXOR XR 150 MG PO (11:52)
--- NOTE | 2023-06-13 13:43 | W.PN.HOSP.TC ---
Today's Communication/Plan
-
Continue diuresis
Lokelma
Repeat labs in the morning
Compression stockings
Assessment / Plan
Assessment / Plan
Gen-AAOx3, NAD
HEENT-NC, AT, anicteric, clear oral mm
Neck-supple
CV-reg, no M, +S1/S2
Lungs-clear B/L
Abd-soft, NT, ND
Ext-no edema
Musculoskeletal-no cyanosis, clubbing
Skin-warm and dry
Neuro-grossly non-focal
Psych-calm, cooperative
Acute on chronic heart failure with reduced EF exacerbation - improving clinically. Shortness of breath improved. Continue diuresis. Not on diuretics at home. Importance of fluid and sodium restriction discussed. BNP noted to be 17,300. Chest
x-ray not done on admission but she did have a CT chest that showed moderate acute interstitial and alveolar cardiogenic pulmonary edema, moderate-sized right and small left pleural effusions, mild cardiomegaly, mild mediastinal lymphadenopathy,
moderate to large paraesophageal hiatal hernia.
Most recent echocardiogram was from April 16, showed LVEF 41%, mild global hypokinesis, indeterminate diastolic function, mild to moderate MR. Mild TR.
Cardiology following.
Near syncope - in the emergency room on arrival, suspect related to orthostatic hypotension. Compression stockings.
Hyperkalemia -possibly dietary related as she loves to eat bananas. Will give a dose of Lokelma. Counseled patient on restricting potassium in her diet.
Hyponatremia -sodium 134.
Elevated liver enzymes -presumably due to passive congestion due to heart failure exacerbation. Monitor for now.
Permanent atrial fibrillation -continue rivaroxaban.
Essential hypertension -stable.
Tobacco dependence
GERD/hiatal hernia
Chronic iron deficiency anemia -hemoglobin currently at baseline. Continue iron supplements.
Hyperlipidemia -atorvastatin.
Chronic peripheral neuropathy
DNR
Anticipated Discharge: 24 - 48 hours
Subjective/Interval History
-
Date of Service: June 13, 2023
Patient seen and examined. Shortness of breath improved. No complaints.
Objective Data
-
Labs:
Laboratory Results
06/13/23 06/13/23
06:43 06:44
WBC 9.7
Hgb 10.4 L
Hct 31.3 L
Plt Count 368
Sodium 134 L
Potassium 5.4 H
Chloride 103
Carbon Dioxide 18 L
BUN 28 H
Creatinine 0.9
Glucose 98
Calcium 9.3
Total Bilirubin 0.8
AST 84 H
ALT 66 H
Alkaline Phosphatase 178 H
Vital Signs:
Vital Signs
Temp Pulse Resp BP Pulse Ox
97.7 F 86 25 119/56 97
06/13/23 11:56 06/13/23 12:00 06/13/23 12:00 06/13/23 12:00 06/13/23 11:56
I&O
06/12/23 06/13/23 06/14/23
06:59 06:59 06:59
Intake Total 250 / 250
Output Total 600 / 600
Balance -350 / -350
Review of Systems
-
History Source: Patient
All other systems: Reviewed and negative
[2023-06-13] MEDS: LOKELMA 10 GRAM PO (14:11)
[2023-06-13 14:19] LABS: HDL Cholesterol 46 mg/dl; LDL Cholesterol, Calculated 97 mg/dl
[2023-06-13 17:04] LABS: Ferritin 46.1 ng/ml (11.1-264.0)
[2023-06-13] MEDS: LIPITOR 10 MG PO (17:51)
[2023-06-13] MEDS: XARELTO 15 MG PO (17:51)
[2023-06-13] MEDS: EFFEXOR XR 75 MG PO (21:10)
[2023-06-14 03:16] VITALS: BP 120/68
[2023-06-14 06:00] VITALS: BMI 23.6
[2023-06-14 07:42] LABS: ALT (SGPT) 57 U/L (0-35); AST (SGOT) 56 U/L (14-36); Alkaline Phosphatase 167 U/L (38-126); Blood Urea Nitrogen 29 mg/dl (7-17); Calcium 9.3 mg/dl (8.4-10.2); Carbon Dioxide 27 mmol/L (22-30); Chloride 100 mmol/L (98-107); Estimated Creatinine Clearance 39 ml/min; Glucose 133 mg/dl (70-99); Potassium 3.7 mmol/L (3.5-5.1); Sodium 134 mmol/L (135-145); Total Bilirubin 0.6 mg/dl (0.2-1.3); Total Protein 6.9 g/dl (6.3-8.2); eGFR > 60.00
[2023-06-14 08:10] VITALS: BP 123/67
[2023-06-14] MEDS: LAMICTAL 25 MG PO (08:40)
[2023-06-14] MEDS: PROTONIX 40 MG PO (08:41)
[2023-06-14] MEDS: TOPROL XL 50 MG PO (08:41)
[2023-06-14] MEDS: TYLENOL 650 MG PO (08:41)
[2023-06-14] MEDS: EFFEXOR XR 150 MG PO (08:41)
[2023-06-14] MEDS: ATIVAN 0.5 MG PO (08:42)
[2023-06-14] MEDS: LASIX 20 MG IV ×2 (08:42→15:16)
--- NOTE | 2023-06-14 10:35 | W.PN.HOSP.TC ---
Addendum entered and electronically signed by Clyde Anguiano DO 06/14/23 12:50:
Not orthostatic based on vitals.
Compression stockings ordered.
Can discharge on Lasix 20 mg daily. Outpatient follow-up with cardiology and PCP. Labs in 1 week.
Original Note:
Today's Communication/Plan
-
Compression stockings
Check orthostatics
Assessment / Plan
Assessment / Plan
Gen-AAOx3, NAD
HEENT-NC, AT, anicteric, clear oral mm
Neck-supple
CV-reg, no M, +S1/S2
Lungs-clear B/L
Abd-soft, NT, ND
Ext-no edema
Musculoskeletal-no cyanosis, clubbing
Skin-warm and dry
Neuro-grossly non-focal
Psych-calm, cooperative
Acute on chronic heart failure with reduced EF exacerbation - improving clinically. Shortness of breath improved. Continue diuresis. Not on diuretics at home. Importance of fluid and sodium restriction discussed. BNP noted to be 17,300. Chest
x-ray not done on admission but she did have a CT chest that showed moderate acute interstitial and alveolar cardiogenic pulmonary edema, moderate-sized right and small left pleural effusions, mild cardiomegaly, mild mediastinal lymphadenopathy,
moderate to large paraesophageal hiatal hernia.
Most recent echocardiogram was from April 16, showed LVEF 41%, mild global hypokinesis, indeterminate diastolic function, mild to moderate MR. Mild TR.
Cardiology following. Weight down slightly overnight.
Near syncope - in the emergency room on arrival, suspect related to orthostatic hypotension. Compression stockings.
Hyperkalemia -possibly dietary related as she loves to eat bananas. Potassium improved to 3.7 today. Received Lokelma yesterday.
Hyponatremia -sodium 134, stable.
Elevated liver enzymes -presumably due to passive congestion due to heart failure exacerbation. Monitor for now.
Permanent atrial fibrillation -continue rivaroxaban.
Essential hypertension -stable.
Tobacco dependence
GERD/hiatal hernia
Chronic iron deficiency anemia -hemoglobin currently at baseline. Continue iron supplements.
Hyperlipidemia -atorvastatin.
Chronic peripheral neuropathy
DNR
Anticipated Discharge: Within 24 hours
Subjective/Interval History
-
Date of Service: June 14, 2023
Patient seen and examined. No complaints.
Objective Data
-
Labs:
Laboratory Results
06/14/23
06:50
Sodium 134 L
Potassium 3.7 D
Chloride 100
Carbon Dioxide 27
BUN 29 H
Creatinine 0.9
Glucose 133 H
Calcium 9.3
Total Bilirubin 0.6
AST 56 H
ALT 57 H
Alkaline Phosphatase 167 H
Vital Signs:
Vital Signs
Temp Pulse Resp BP Pulse Ox
98.4 F 86 16 123/67 98
06/14/23 08:10 06/14/23 08:10 06/14/23 08:10 06/14/23 08:10 06/14/23 08:10
I&O
06/13/23 06/14/23 06/15/23
06:59 06:59 06:59
Intake Total 250 / 250 240 / 240
Output Total 600 / 600 250 / 250
Balance -350 / -350 -10 / -10
Review of Systems
-
History Source: Patient
All other systems: Reviewed and negative
--- NOTE | 2023-06-14 11:29 | W.PN.CARDCBS ---
Addendum entered and electronically signed by Louisa Taylor DO 06/14/23 16:26:
I saw and examined the patient.
The Handbag Parts Cutter's note was reviewed and I agree with the note.
Comment: Seen and examined with daughter at bedside. Patient overall feeling well but poor historian with underlying dementia. No dizziness or lightheadedness. Reports improved shortness of breath. No chest pain or pressure. Awaiting PT
evaluation.
GEN: NAD on room air
HEENT: mmm
LUNGS: Clear to auscultation
CV: Irregularly irregular S1/S2, 03/01 syst murmur
ABD: soft, BS+, NT/ND
EXT: No lower extremity edema, resolved
Lexiscan nuclear stress test 03/21/2022: No fixed or reversible defects. Ejection fraction 42%
Echo 04/16/2023: TDS with endocardial definition. EF 41% by Cordon method, 40 to 45% by visual assessment. Mild global hypokinesis. Abnormal paradoxical septal motion consistent with left bundle branch block. Mild to moderate MR. Mild TR. PAP
34 mmHg. Compared to study February 2022 ejection fraction has declined slightly from 45 to 50% prior
Plan:
Presented 06/12/2023 with generalized malaise, fatigue and shortness of breath.
Acute heart failure with reduced ejection fraction, proBNP 17,300
-Patient admits that diet is salt rich and she 'loves salt'. Daughter is aware of dietary salt restrictions < 2 gms
-Nice response to diuretics. 12 pound weight loss per record with IV Lasix 20 mg IV twice daily; patient is Lasix na�ve and not on standing Lasix as an outpatient
-Will transition to oral Lasix 20 mg daily
-Renal function and potassium have improved; repeat comprehensive metabolic profile in 1 week
-If potassium continues to be within normal limits could consider starting BRYCE/ARB or ARNi (likely will be limited by blood pressure).
-Consider outpatient addition of SGLT2 inhibitor
-CHF education and monitoring reviewed with daughter
-No need to repeat echocardiogram from March 2023 at present
Hyperkalemia-improved s/p Lokelma 06/13/2023. Possibly dietary related as patient admits to eating multiple bananas a day
Near syncope in the emergency department likely related to orthostatic hypotension
-Orthostatic vitals checked 06/13/2023 supine 100/70, sitting 122/85, standing 79/65.
-Blood pressures on the lower side without orthostasis today
-Compression stockings ordered
-If blood pressures continue to be an issue as an outpatient could consider reduction of metoprolol however we will hold off at this time his heart rates in the 80s�90s.
-PT assessment pending
Permanent atrial fibrillation with left bundle branch block
-Continue metoprolol for rate control but monitor blood pressure trends
-Could consider outpatient reduction of metoprolol and addition of digoxin for better rate control if blood pressures continue to be on the lower side
-Continue on chronic anticoagulation on Xarelto 15 mg daily (creatinine clearance 45 based on age, weight 139, creatinine 0.9)
-TSH 4.61
Abnormal LFTs
-Likely passive hepatic congestion.
-Improving with diuresis; check CMP in 1 week
-Continue to monitor and trend with diuresis
Possible discharge home today following PT evaluation
Discussed with daughter at bedside
Discussed with hospitalist
Outpatient cardiac follow-up arranged
Original Note:
Today's Communication / Plan
-
Transition to oral Lasix 20 mg at discharge
Check orthostatic blood pressures
Utilize compression stockings
CMP in 1 week
Outpatient cardiology follow-up arranged
Impression / Plan
-
PCP: Stefanie Nieves
Filter Tank Tender Helper Head Dr. Joanna Argueta
Impression:
Presented 06/12/2023 with generalized malaise, fatigue and shortness of breath
Acute on chronic heart failure with reduced ejection fraction, proBNP 17,300
Abnormal LFTs
Electrolyte disturbance
Near syncopal event in emergency department
Permanent Atrial Fibrillation
Chronic anticoagulation with Xarelto
Hypertension
Left bundle branch block
Mitral regurgitation
Chronic anemia
Tobacco abuse
GERD with hiatal hernia
Anxiety / Depression
Dyslipidemia
Peripheral Neuropathy
Bowel obstruction 2018
Appendectomy
Lexiscan nuclear stress test 03/21/2022: No fixed or reversible defects.
Echo 04/16/2023: TDS with endocardial definition. EF 41% by Cordon method, 40 to 45% by visual assessment. Mild global hypokinesis. Abnormal paradoxical septal motion consistent with left bundle branch block. Mild to moderate MR. Mild TR. PAP
34 mmHg. Compared to study February 2022 ejection fraction has declined slightly from 45 to 50% prior
cardiac catheterization 05/2015 with 20% RCA lesion and normal LV function
Plan:
Presented 06/12/2023 with generalized malaise, fatigue and shortness of breath.
Acute on chronic heart failure with reduced ejection fraction, proBNP 17,300
-weight down several lbs overnight. Patient reports she is feeling significantly better with improved shortness of breath.
-Would transition to oral Lasix 20 mg daily
-K+ improved to 3.7 after given dose of Lokelma 06/12
-Kidney function stable BUN/creatinine 29/ 0.9
-Recent echo from March 2023 noted above. No need to repeat
-Continue Toprol
-Obtain CMP in 1 week as outpt
-Consider addition of low dose BRYCE inhibitor Lisinopril 2.5 mg daily as outpatient if K+ remains stable
Permanent atrial fibrillation
-Heart rate initially elevated on presentation however has improved
-Continue metoprolol for rate control
-Continue on chronic anticoagulation on Xarelto 15 mg daily (creatinine clearance 45 based on age, weight 139, creatinine 0.9)
-TSH 4.61
Abnormal LFTs
-Likely passive hepatic congestion.
-Improving with diuresis; check CMP in 1 week
-Continue to monitor and trend with diuresis
Electrolyte disturbance
-Hyperkalemia K 5.4 on admission.
-K+ improved to 3.7 after given dose of Lokelma 06/12. Monitor and trend with diuresis
-Sodium 134, continue to monitor and trend with diuresis
Near syncopal event in emergency department
-Per discussion with daughter appears near syncopal episode may have been vasovagal as patient felt nauseous and sweaty and vomited just prior to her near syncopal event
-Orthostatic vitals checked 06/13/2023 supine 100/70, sitting 122/85, standing 79/65.
-Repeat orthostatics
-Consider utilizing compression stockings
-PT OT assessment
HPI 06/13/23:
Patient is an 88-year-old female with past medical history significant for permanent atrial fibrillation on chronic anticoagulation with Xarelto, chronic heart failure with reduced ejection fraction, hypertension, left bundle branch block, mild
mitral regurgitation, tobacco abuse who presented to emergency department 06/12/2023 with family after complaints of generalized malaise, fatigue and shortness of breath. Patient had been at her primary care physician who had noted her to be short
of breath and hypoxic and was sent to the emergency department for evaluation. proBNP elevated at 17,300. CT chest demonstrated bilateral pleural effusions right greater than left with interstitial pulmonary edema and moderate to large
paraesophageal hiatal hernia. LFTs and potassium were noted to be elevated. Troponin x 2 negative. EKG showed atrial fibrillation with rapid ventricular response. Patient was provided 40 mg IV in emergency department. Of note while in the
emergency department patient did have near syncopal event which occurred while she was in the bathroom and she became dizzy lightheaded and diaphoretic. She slumped backwards against the wall but did not fall or lose consciousness.
At the time of this evaluation patient resting comfortably in bed not requiring oxygen. She reports her shortness of breath has improved significantly. She reports she is making good urine.
Progress Note - Filter Tank Tender Helper Head
Subjective
Date of Service: June 14, 2023
Patient seen and examined. Patient's daughter at bedside. Patient reports she is feeling considerably better. She would like to go home today.
Objective
Labs:
06/13/23 06:44
06/14/23 06:50
Labs
Hgb 10.4 g/dL (12.0-16.0) L 06/13/23 06:44
Hct 31.3 % (37.0-47.0) L 06/13/23 06:44
Plt Count 368 10^3/uL (130-400) 06/13/23 06:44
Sodium 134 mmol/L (135-145) L 06/14/23 06:50
Potassium 3.7 mmol/L (3.5-5.1) D 06/14/23 06:50
BUN 29 mg/dl (7-17) H 06/14/23 06:50
Creatinine 0.9 mg/dL (0.6-1.0) 06/14/23 06:50
Glucose 133 mg/dl (70-99) H 06/14/23 06:50
Troponins
06/12/23 06/12/23 06/12/23
19:15 19:47 23:37
Troponin I Cancelled < 0.012 Cancelled
06/13/23 06/13/23 06/13/23
00:13 06:44 12:00
Troponin I 0.017 D 0.017 Cancelled
Vital Signs and I&O:
Vital Signs
Temp Pulse Resp BP Pulse Ox
98.4 F 86 16 123/67 98
06/14/23 08:10 06/14/23 08:10 06/14/23 08:10 06/14/23 08:10 06/14/23 08:10
Vital Signs
Temp Pulse Resp BP Pulse Ox
98.4 F 86 16 123/67 98
06/14/23 08:10 06/14/23 08:10 06/14/23 08:10 06/14/23 08:10 06/14/23 08:10
Intake & Output
06/12/23 06/13/23 06/14/2324
06:59 06:59 06:59 06:59
Intake Total 250 / 250 240 / 240
Output Total 600 / 600 250 / 250
Balance -350 / -350 -10 / -10
Physical Exam
Physical Exam
GEN: No distress, awake, Ox3
HEENT: supple, anicteric, mmm
LUNGS: CTA, no wheezes/rales
CV: Reg, S1/S2, 1/6 syst LSB murmur, no rubs or gallops
ABD: soft, BS+, NT/ND
EXT: No edema, clubbing or cyanosis
NEURO: Gross non-focal
SKIN: No rash, warm, dry, pink
[2023-06-14 12:16] VITALS: BP 103/61; BP 105/60; PULSE 84; PULSE 86; PULSE 89
--- NOTE | 2023-06-14 12:54 | W.DS.TRANS ---
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
-
Discharge Instructions:
Discharge Diagnosis/Procedures Heart failure exacerbation, electrolyte
abnormalities
Diet Restrict fluids to 48 oz,Low Sodium
Activity As tolerated
Driving Restrictions As prior to admission
Bathing Restrictions None
Blood Work CMP in 1 week
Instructions: *D[facility] Heart Failure Instructions
Stand-Alone Forms:
Changes to Home Medications: Yes
Discharge Medications:
DC Medications w/original date entered in [facility]
atorvastatin 10 mg tablet 10 mg PO QPM High Cholesterol 10/01/18
lorazepam 0.5 mg tablet 0.5 mg PO BID Mental Health/Anxiety 10/01/18
rivaroxaban 15 mg tablet (Xarelto) 15 mg PO QPM Blood Clot Prevention/Tx 10/01/18
doxylamine succinate 25 mg tablet (Unisom (doxylamine)) 25 mg PO HS Sleep 06/12/23
ferrous sulfate 325 mg (65 mg iron) tablet 325 mg PO DAILY Supplement 06/12/23
guar gum 1 tbsp PO DAILY Constipation 06/12/23
lamotrigine 25 mg tablet (Lamictal) 25 mg PO BID Neurological Condition 06/12/23
metoprolol succinate 50 mg tablet,extended release 24 hr (Toprol XL) 50 mg PO DAILY Blood Pressure 06/12/23
omeprazole magnesium 20 mg tablet,delayed release 40 mg PO DAILY Gastrointestinal Issue 06/12/23
therapeutic multivitamin 1 tab PO DAILY Supplement 06/12/23
venlafaxine 75 mg capsule,extended release 24 hr (Effexor XR) 75 mg PO HS Mental Health/Anxiety 06/12/23
venlafaxine 75 mg capsule,extended release 24 hr (Effexor XR) 150 mg PO DAILY Mental Health/Anxiety 06/12/23
furosemide 20 mg tablet 20 mg PO DAILY #30 tabs 06/14/23
Home Medication Changes
Stop diltiazem
Pending Results: No
--- NOTE | 2023-06-14 14:00 | CM ---
CM following re: discharge planning.
Reviewed pt's chart, met with pt and pt's daughter Molly at bedside.
Pt is an 88 year old female, admitted with primary dx of CHF.
Pt reports she lives with daughter in a 2SH, has 2 supportive daughters. 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 No DME, VN or SNF history.
Discharge order is noted. Both pt and her daughter are aware, expressed their agreement with discharge. IMM reviewed, placed in chart, pt has a copy.
CM consult to arrange VN services for medication management and new d/x of CHF. CM discussed it with pt and her daughter, a list of VN vendors provided, [facility] preferred. A referral to [facility] made.
Please fax discharge instructions to VN at [phone].
D/c plan: home with [facility] and family support. Daughter to transport.
No other discharge needs identified.
[2023-06-14 14:59] VITALS: BP 121/73; PULSE 101
--- NOTE | 2023-06-16 10:48 | W.HF.CON ---
Heart Failure
- LV Function
Left ventricular function study result: LV Ejection fraction >40%
Ejection Fraction Percentage: 40-45
- ARNI
Patient already on ARNI: No
Heart Failure ARNI Not Indicated: LV Ejection Fraction >/= 40%
- ACEI/ARB
Patient already on ACEI/ARB: No
Heart Failure ACEI/ARB Not Indicated: LV Ejection Fraction > 40%
- Beta Norbert
Patient already on Evidence Based Beta Norbert: Yes
- Mineralocorticord Receptor Antagonist
Patient already on MRA: No
Heart Failure MRA Not Indicated: LV Ejection Fraction > 40%
- SGLT-2 Inhibitor
Patient already on SGLT-2 Inhibitor: No
Heart Failure SGLT-2 Inhibitor Not Indicated: LV Ejection Fraction >40%
- Afib Anticoagulation
Patient already on Anticoagulation for Afib: Yes
- NYHA CHF Classification
NYHA CHF Classification Level: Class III - Symptoms w/ min exertion, interferes w/ nml daily activity
- ACC/AHA Stage
ACC/AHA Stage: Stage C: Symptomatic Heart Failure
== END 2023-06-14 16:59 | disposition home health service (06) | DRG 291 ==
LOC: 4 WEST ACU 21:21
PROVIDERS: Emergency Medicine; Physician Assistant; ADMITTING PHYSICIAN Hospitalist; ATTENDING PHYSICIAN Hospitalist; EMERGENCY PHYSICIAN Emergency Medicine; FAMILY PHYSICIAN Internal Medicine; OTHER PHYSICIAN Internal Medicine Cardiovascular Disease
DX: I11.0 Hypertensive heart disease with heart failure (principal); I50.23 Acute on chronic systolic (congestive) heart failure; E87.1 Hypo-osmolality and hyponatremia; I48.21 Permanent atrial fibrillation; Z79.01 Long term (current) use of anticoagulants; F17.210 Nicotine dependence, cigarettes, uncomplicated; D50.9 Iron deficiency anemia, unspecified; E87.5 Hyperkalemia; K21.9 Gastro-esophageal reflux disease without esophagitis; E78.5 Hyperlipidemia, unspecified; Z66 Do not resuscitate
CPT/HCPCS: 71275; 80053; 80061; 81003; 81015; 82248; 82607; 82728; 83540; 83550; 83880; 84443; 84484; 85025; 85027; 85379; 87086; 93005; 96361; 96374; 97165; 99285; Q9967

== ENCOUNTER → 2023-06-20 11:44 | Outpatient (REF) | payer MEDICARE, SELFPAY ==
[2023-06-20 12:36] LABS: % Basophils 0.6 % (0-2); % Eosinophils 1.6 % (0-6); % Immature Granulocytes 0.5 % (0-0.5); % Lymphocytes 6.1 % (20.5-51.1); % Monocytes 9.8 % (1.7-9.3); % Neutrophils 81.4 % (42.2-75.2); Absolute Basophils 0.1 10^3/uL (0-0.2); Absolute Eosinophils 0.3 10^3/uL (0-0.7); Absolute Immature Granulocytes 0.1 10^3/uL (0-0.05); Absolute Lymphocytes 1.1 10^3/uL (1.2-3.4); Absolute Monocytes 1.7 10^3/uL (0.1-0.6); Absolute Neutrophils 14.2 10^3/uL (1.4-6.5); Hematocrit 33.8 % (37.0-47.0); Hemoglobin 10.7 g/dL (12.0-16.0); Mean Corp Hgb Conc. 31.7 g/dL (33.0-37.0); Mean Corpuscular Hgb 25.5 pg (27.0-31.0); Mean Corpuscular Volume 80.5 fL (81.0-99.0); Nucleated Red Blood Cells % 0 %; Red Cell Dist. Width 20.4 % (11.5-14.5); White Blood Cell Count 17.5 10^3/uL (4.8-10.8)
[2023-06-20 12:48] LABS: ALT (SGPT) 25 U/L (0-35); AST (SGOT) 27 U/L (14-36); Albumin 3.9 g/dl (3.5-5.0); Alkaline Phosphatase 135 U/L (38-126); Blood Urea Nitrogen 32 mg/dl (7-17); Calcium 9.6 mg/dl (8.4-10.2); Carbon Dioxide 26 mmol/L (22-30); Chloride 94 mmol/L (98-107); Glucose 123 mg/dl (70-99); Iron 33 ug/dl (37-170); Potassium 4.3 mmol/L (3.5-5.1); Sodium 128 mmol/L (135-145); Total Bilirubin 0.8 mg/dl (0.2-1.3); Total Protein 6.7 g/dl (6.3-8.2); eGFR > 60.00
[2023-06-20 13:30] LABS: Platelet Count 297 10^3/uL (130-400)
== END ==
LOC: REG 11:44
PROVIDERS: ATTENDING PHYSICIAN Internal Medicine
DX: D50.8 Other iron deficiency anemias (principal); Z79.01 Long term (current) use of anticoagulants; I10 Essential (primary) hypertension; I48.20 Chronic atrial fibrillation, unspecified; R53.83 Other fatigue
CPT/HCPCS: 36415; 80053; 82728; 83540; 85025

== ENCOUNTER 2023-06-23 13:21 | Emergency (ER) | payer MEDICARE, SELFPAY ==
[2023-06-23 13:22] VITALS: BP 106/67
== END 2023-06-23 15:55 ==
LOC: EMR 13:21
DX: R53.1 Weakness (principal); I48.91 Unspecified atrial fibrillation; Z53.21 Procedure and treatment not carried out due to patient leaving prior to being seen by health care provider
CPT/HCPCS: 93005

== ENCOUNTER 2023-06-24 22:49 | Inpatient (IN) | payer MEDICARE, SELFPAY ==
[2023-06-24] VITALS (10 sets, daily range): BP systolic 94–112; BP diastolic 63–79; BMI 23.8
[2023-06-24 17:10] LABS: % Basophils 0.3 % (0-2); % Eosinophils 2.9 % (0-6); % Immature Granulocytes 0.6 % (0-0.5); % Lymphocytes 9.2 % (20.5-51.1); % Monocytes 8.5 % (1.7-9.3); % Neutrophils 78.5 % (42.2-75.2); Absolute Eosinophils 0.3 10^3/uL (0-0.7); Absolute Immature Granulocytes 0.1 10^3/uL (0-0.05); Absolute Lymphocytes 1.1 10^3/uL (1.2-3.4); Absolute Neutrophils 9.1 10^3/uL (1.4-6.5); Hematocrit 28.7 % (37.0-47.0); Hemoglobin 9.5 g/dL (12.0-16.0); Mean Corp Hgb Conc. 33.1 g/dL (33.0-37.0); Mean Corpuscular Hgb 25.3 pg (27.0-31.0); Mean Corpuscular Volume 76.3 fL (81.0-99.0); Nucleated Red Blood Cells % 0 %; Platelet Count 405 10^3/uL (130-400); Red Blood Cell Count 3.76 10^6/uL (4.20-5.40); Red Cell Dist. Width 19.6 % (11.5-14.5); White Blood Cell Count 11.6 10^3/uL (4.8-10.8)
[2023-06-24 17:28] LABS: Troponin I 0.018 ng/ml
[2023-06-24 17:29] LABS: ALT (SGPT) 63 U/L (0-35); AST (SGOT) 85 U/L (14-36); Albumin 3.3 g/dl (3.5-5.0); Alkaline Phosphatase 182 U/L (38-126); Blood Urea Nitrogen 46 mg/dl (7-17); Calcium 8.8 mg/dl (8.4-10.2); Carbon Dioxide 20 mmol/L (22-30); Chloride 94 mmol/L (98-107); Estimated Creatinine Clearance 32 ml/min; Glucose 128 mg/dl (70-99); Potassium 3.9 mmol/L (3.5-5.1); Sodium 126 mmol/L (135-145); Total Bilirubin 0.9 mg/dl (0.2-1.3); Total Protein 6.1 g/dl (6.3-8.2); eGFR 48.94
[2023-06-24 19:20] LABS: NT-proBNP > 27000 pg/ml
[2023-06-24 20:03] LABS: Urine Albumin Negative (Neg - Trace); Urine Bilirubin 1+ (Negative); Urine Character Clear (Clear); Urine Color Yellow; Urine Glucose Negative (Negative); Urine Ketone Trace (Negative); Urine Leukocyte Trace (Negative); Urine Nitrite Negative (Negative); Urine Occult Blood Negative (Negative); Urine Specific Gravity 1.025 (<1.030); Urine Urobilinogen 1+ (Neg - 1+)
[2023-06-24 20:12] LABS: Lactic Acid 1.8 mmol/L (0.7-2.0)
[2023-06-24 20:15] LABS: Urine Bacteria Many (Negative); Urine Red Blood Cell 0-2 /HPF (0-2); Urine White Cell 0-2 /HPF (0-5)
[2023-06-24 20:25] LABS: NT-proBNP > 27000 pg/ml
[2023-06-24] MEDS: NSS 250 IV ×2 (20:40→22:01)
--- NOTE | 2023-06-24 20:54 | ED.GENMED ---
History of Present Illness
General
Chief Complaint: Weakness
Source: patient, records and family
Exam Limitations: none
Time Seen by Provider: 06/24/23 18:07
Nursing documentation reviewed up to this point in time: agreed with
Travel History
Have you had any contact with someone who has COVID-19?: No
Do you have any symptoms of coronavirus? Fever > 100 degrees, chills, cough, shortness of breath, sore throat, loss of taste or smell, muscle aches, or headache?: No
History of Present Illness
History of Present Illness:
88-year-old female past medical history hypertension, hyperlipidemia, CHF, atrial fibrillation, GERD, irritable bowel syndrome who presents to the emergency room accompanied by her daughters with whom she lives for evaluation of increasing
generalized weakness, persistent profuse diarrhea. Patient was notably admitted to this hospital 06/12/2023 until 06/14/2023 for acute CHF exacerbation and atrial fibrillation with rapid ventricular response. Patient was reportedly doing well on
discharge. About a week ago she started with an episode of abdominal cramping associated with 1 bout of nausea with vomiting and started having profuse watery diarrhea. The next day patient woke up and abdominal pain had improved and she had no
additional vomiting but diarrhea persisted and has persisted for the past 5 days. Yesterday she had a formed stool and seem to be doing better but then today started again with profuse watery diarrhea. Over the past week in addition to the
diarrhea she has had increasing generalized weakness and today daughters could not even get her out of bed�'she was like a rag doll.' And so they called EMS to bring her to the hospital. They have not noticed any fever or chills. Aside from
feeling 'very weak' patient denies any specific complaints in the emergency room including chest pain, abdominal pain, nausea.
Past History
Past History
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
ED Past Surgical History: Appendectomy and Other (Colonoscopy)
Social History
Tobacco: Non-smoker
Alcohol: None
Personal:
Living: with family
Employment: Retired
Family History
Family History: Other (Noncontributory)
Review of Systems
Review of Systems
All Other Systems: ROS reviewed and negative except as documented in HPI and ROS
Constitutional: Reports fatigue; Denies fever or chills
EENT: Denies sore throat or runny nose
Respiratory: Denies cough or trouble breathing
Cardiac: Denies chest pain or palpitations
ABD/GI: Reports abdominal pain, nausea, vomiting and diarrhea; Denies bloody stools
: Denies flank pain
Musculoskeletal: Denies edema, neck pain or back pain
Neurological: Denies dizzy or headache
Phy Exam
Physical Exam
Physical Exam:
General: Awake, alert, very weak appearing
Head: Normocephalic, atraumatic
Eyes: Conjunctiva normal, sclera anicteric, pupils equal round react light
Throat: Airway intact, mucous membranes dry
Neck: Trachea midline
Lungs: Clear to auscultation bilaterally, no wheezing, rales, rhonchi
Heart: Tachycardia with irregularly irregular rhythm, no murmurs, gallops, or rubs
Abd: Soft, non distended, mild tenderness across lower abdomen
Neuro: No gross deficits
Skin: Dry, no rash
Extremities: No edema in extremities, equal pulses in all extremities
Scores
Heart Failure Risk
Heart Failure Risk Score: Not Applicable
Heart Score for Chest Pain Patients
STEMI patient?: Not applicable
Withdrawal Assessment of Alcohol
Withdrawal Assessment Completed?: Not applicable
Course
Orders/Labs/Results
Orders:
Orders
06/24/23 16:53
EKG [Electrocardiogram (*1)] Urgent
Reason for Study: Tachycardia
06/24/23 16:54
EKG- Treatment ONCE
06/24/23 16:56
Complete Blood Count/With Diff Urgent
Comprehensive Metabolic Panel Urgent
NT-proBNP Urgent
Comment: ADD ON
Troponin I Urgent
06/24/23 18:11
CR Chest Portable - 1 View Urgent
Comment:
Reason For Exam: weakness, c/f chf
Reason Study Needs to be Portable: Unable to Transport
06/24/23 18:40
Add On- LAB Urgent
Tests Added?: NT proBNP
06/24/23 19:15
Blood Culture Q30M
[facility] Source: Blood/Venous
Specimen Description:
06/24/23 19:48
Urinalysis Reflex To Culture Urgent
Date Specimen was Collected: 06/24/23
Time Specimen was Collected: 18:45
Urine Microscopic Reflex Cult Urgent
Urine Culture Urgent
[facility] Source: U
Specimen Description:
Date Specimen was Collected: 06/24/23
Time Specimen was Collected: 18:45
06/24/23 19:53
Lactate Level [Lactic Acid] Urgent
NT-proBNP Urgent
Blood Culture Q30M
[facility] Source: Blood/Venous
Specimen Description:
06/24/23 20:32
STOOL [C difficile Antigen & Toxins] Urgent
[facility] Source: Feces/Stool
Specimen Description:
Stool Culture Urgent
[facility] Source: Feces/Stool
Specimen Description:
06/24/23 20:33
CT Abd/pelvis W Iv Cont Urgent
Comment:
Reason For Exam: abd pain, diarrhea
Urine Sodium Urgent
0.9% Sodium Chloride 250 ml [Nss] 250 ml IV BOLUS
06/24/23 20:34
Osmolality, Random Urine Urgent
Abnormal Lab Results
06/24/23 06/24/23
16:56 19:48
WBC 11.6 H 10^3/uL
(4.8-10.8)
RBC 3.76 L 10^6/uL
(4.20-5.40)
Hgb 9.5 L g/dL
(12.0-16.0)
Hct 28.7 L %
(37.0-47.0)
MCV 76.3 L fL
(81.0-99.0)
MCH 25.3 L pg
(27.0-31.0)
RDW 19.6 H %
(11.5-14.5)
Plt Count 405 H D 10^3/uL
(130-400)
MPV 12.0 H fL
(7.4-10.4)
Abs Immat Gran (auto) 0.1 H 10^3/uL
(0-0.05)
Absolute Neuts (auto) 9.1 H 10^3/uL
(1.4-6.5)
Absolute Lymphs (auto) 1.1 L 10^3/uL
(1.2-3.4)
Absolute Monos (auto) 1.0 H 10^3/uL
(0.1-0.6)
Immature Gran % 0.6 H %
(0-0.5)
Neutrophils % 78.5 H %
(42.2-75.2)
Lymphocytes % 9.2 L %
(20.5-51.1)
Sodium 126 L mmol/L
(135-145)
Chloride 94 L mmol/L
(98-107)
Carbon Dioxide 20 L mmol/L
(22-30)
BUN 46 H mg/dl
(7-17)
Creatinine 1.1 H mg/dL
(0.6-1.0)
Glucose 128 H mg/dl
(70-99)
AST 85 H U/L
(14-36)
ALT 63 H U/L
(0-35)
Alkaline Phosphatase 182 H U/L
(38-126)
Total Protein 6.1 L g/dl
(6.3-8.2)
Albumin 3.3 L g/dl
(3.5-5.0)
Urine Ketones Trace A
(Negative)
Urine Bilirubin 1+ A
(Negative)
Leukocyte Esterase Rfl Trace A
(Negative)
Urine Bacteria (Reflex) Many A
(Negative)
06/24/23 16:56
06/24/23 16:56
Vital Signs
Initial and Last Documented VS:
Initial Vital Signs
Temp Pulse Resp BP Pulse Ox
36.8 C 115 31 111/63 98
06/24/23 16:48 06/24/23 16:48 06/24/23 16:48 06/24/23 16:48 06/24/23 16:48
Last Documented Vital Signs
Temp Pulse Resp BP Pulse Ox
36.8 C 113 38 104/66 97
06/24/23 16:48 06/24/23 20:00 06/24/23 20:00 06/24/23 20:00 06/24/23 20:00
MDM/Problems Addressed
Differential Diagnosis Includes:
Diarrheal illness: Viral enteritis, colitis, C. difficile
Weakness: Dehydration, infection, A-fib with RVR, CHF
MDM/Problems Addressed:
88-year-old female with recent admission for A-fib with RVR and CHF presents with family for evaluation of increasing generalized weakness in the setting of diarrheal illness. Tachycardic and tachypneic on arrival here but otherwise normal vitals.
Physical exam as above. Plan to place an IV check labs including a CBC and a CMP, lactate, blood cultures. Will check troponin and BNP. Check urinalysis and chest x-ray. Will send for CT abdomen pelvis. Will send stool studies if able. Will
provide some very gentle IV fluids�although she does have a history of CHF she clinically appears hypovolemic. Will monitor closely reassess after the above.
Labs reviewed: CBC shows leukocytosis 11.6. Stable anemia to 9.5. CMP shows hyponatremia 126 suspect hypovolemic. She has an MICHELE with a creatinine of 1.1 from baseline of 0.8. Her troponin is undetectable but her BNP is markedly elevated at
greater than 27,000; chest x-ray no signs of CHF or pneumonia. Urinalysis has bacteria but many squamous cells that suggest contamination and no pyuria to suggest an acute infection. Awaiting results of CT. Plan to admit for dehydration and acute
kidney injury in the setting of diarrheal illness pending CT.
Chronic conditions affecting care:
A-fib
*Radiology
Radiology exam reviewed: radiology read reviewed
*Pulse Oximetry
Patient hypoxic: no
*EKG
Interpreted by ED Provider?: Yes
Comparison EKG: no changes
Heart Rate: 107
Rate: tachycardiac
Rhythm: a-fib
[place]: left axis deviation
Interval: normal interval
QRS Pattern: left bundle branch block
Ischemia: non-specific ST changes
*Critical Care Note
Total Time (30-74mins, 75-104mins- exclusive of procedures): Not Applicable
Data Reviewed
Review of Other/Old Records Reveals: Labs, Records and Discharge Summary
Source: patient, records and family
Patient Management
Discussion with other providers: Hospitalist (Discussed with hospitalist)
Escalation/DeEscalation of care consider admission/obs:
Admission indicate
ED Attending Note
-
Portions of this chart may have been created with voice recognition software.� Occasional wrong word or��sound alike� substitutions may have occurred due to the inherent limitations of voice recognition software.
Discharge Plan
Departure
Admit to doctor: Facundo
Presentation/result/management discussed w/ accepting MD/DO: Hospitalist
Discharge Problem:
Acute dehydration, Diarrhea, MICHELE (acute kidney injury), Acute hyponatremia
Prescriptions:
No Action
atorvastatin 10 MG tablet
10 mg PO HS
lorazepam 0.5 MG tablet
0.5 mg PO BID
Patient Comments:
06/24/2023: last filled 06/14/23, 90 tabs for 30 days from [facility]
Xarelto 15 MG tablet
15 mg PO HS
venlafaxine [Effexor XR] 75 mg Capsule,Extended Release 24hr
75 mg PO HS
venlafaxine [Effexor XR] 75 mg Capsule,Extended Release 24hr
150 mg PO DAILY
metoprolol succinate [Toprol XL] 50 mg Tablet Extended Release 24 Hr
25 mg PO BID
therapeutic multivitamin Tablet
1 tab PO DAILY
lamotrigine [Lamictal] 25 mg Tablet
25 mg PO BID
Unisom (doxylamine) 25 mg Tablet
50 mg PO HS
omeprazole magnesium 20 mg Tablet,Delayed Release (Dr/Ec)
40 mg PO DAILY
midodrine 5 mg tablet
5 mg PO BID
Benefiber (guar gum) Packet
1 tbsp PO DAILY
amiodarone 200 mg tablet
200 mg PO BID
Referrals:
Pardeep Linares I., DO [Family Provider] -
Interventions
Interventions:
*Risk Screen - Suicide Last Done: 06/24/23 17:00
*General Assessment Last Done: 06/24/23 17:00
*Neglect/Abuse Screening Last Done: 06/24/23 17:00
ED- Fall Risk Assessment Last Done: 06/24/23 17:06
*ED COVID-19 Vaccine History Last Done: 06/24/23 17:00
ED- Cardiac Assessment Last Done: 06/24/23 17:00
ED- Neurological Assessment Last Done: 06/24/23 17:00
ED- Pulmonary Assessment Last Done: 06/24/23 17:00
Discharge Date and Time
Print Language: CAMEROONIAN
--- NOTE | 2023-06-24 22:11 | HPS.HSE ---
Family Physician
-
Family Physician: Pardeep Linares
Chief Complaint
-
Nausea, vomiting, watery diarrhea
History of Present Illness
88-year-old female from home complaining of abdominal cramping with nausea, vomiting x 3 episodes and watery diarrhea that started approximately 1 week ago and has persisted over the past 7 days. She reports yesterday having a formed stool but then
diarrhea started again. She notified her PCP and was told to hold her Lasix 20 mg daily. She complains of generalized weakness. She denies recent antibiotics, travel, eating out, blood in stool, mucus in stool, fever, chills, chest pain,
palpitations, shortness of breath, cough, urinary symptoms. She was noted to be hypotensive with rapid A-fib in ER likely due to volume depletion.
She had a recent admission 06/11 - 06/14/2023 for exacerbation of heart failure with near syncope hyperkalemia hyponatremia elevated liver enzymes she improved with diuresis and Lokelma was placed on Lasix 20 mg daily, fluid restrict 48 ounce and to
follow-up with outpatient cardiology.
She has past medical history of A-fib on Xarelto, GERD, depression, skin CA, orthostatic hypotension, diverticulitis, GERD, hiatal hernia, iron deficiency anemia, chronic peripheral neuropathy, CKD 3B
Medical History
Past Medical History
Past Medical History: Reports Other
Additional Past Medical History:
Persistent Atrial Fibrillation
Hypertension
Anxiety / Depression
Dyslipidemia
Peripheral Neuropathy
Orthostatic hypotension
A-fib on Xarelto
GERD/hiatal hernia
Diverticulitis reports many years ago
depression
skin CA
iron deficiency anemia
chronic peripheral neuropathy
CKD 3B
Past Surgical History: Reports Other
Additional Past Surgical History:
Appendectomy
Colonoscopy in her 70s
Exploratory lap approximately 12 years ago to rule out B-cell lymphoma versus mass
Social History
Tobacco: Smoker (Current every day smoker. Approx 1/2 ppd with total of > 60 pack years use.)
Alcohol: Occasional
Drug: None
Personal: Single
Living: With Family (Daughter Molly)
Family History
Family History: Not pertinent
Allergies / Home Medications
Allergies reflects when Allergies were last updated in [facility].
Home Medications with original date entered in [facility]
Allergy/Medication List:
Allergies
Allergy/AdvReac Type Severity Reaction Status Date / Time
bacitracin [From Neosporin] Allergy MAKES WORSE Verified 06/24/23 17:10
bacitracin zinc Allergy MAKES WORSE Verified 06/24/23 17:10
[From Neosporin]
gramicidin D [From Neosporin] Allergy MAKES WORSE Verified 06/24/23 17:10
neomycin sulfate Allergy MAKES WORSE Verified 06/24/23 17:10
[From Neosporin]
Penicillins Allergy SWELLING,LUMPS-AGE Verified 06/24/23 17:10
16
polymyxin B [From Neosporin] Allergy MAKES WORSE Verified 06/24/23 17:10
polymyxin B sulfate Allergy MAKES WORSE Verified 06/24/23 17:10
[From Neosporin]
Sulfa (Sulfonamide Allergy Unknown Verified 06/24/23 17:10
Antibiotics)
Home Medications
atorvastatin 10 mg tablet 10 mg PO HS High Cholesterol 10/01/18
lorazepam 0.5 mg tablet 0.5 mg PO BID Mental Health/Anxiety 10/01/18
rivaroxaban 15 mg tablet (Xarelto) 15 mg PO HS Blood Clot Prevention/Tx 10/01/18
doxylamine succinate 25 mg tablet (Unisom (doxylamine)) 50 mg PO HS Sleep 06/12/23
lamotrigine 25 mg tablet (Lamictal) 25 mg PO BID Neurological Condition 06/12/23
metoprolol succinate 50 mg tablet,extended release 24 hr (Toprol XL) 25 mg PO BID Blood Pressure 06/12/23
omeprazole magnesium 20 mg tablet,delayed release 40 mg PO DAILY Gastrointestinal Issue 06/12/23
therapeutic multivitamin 1 tab PO DAILY Supplement 06/12/23
venlafaxine 75 mg capsule,extended release 24 hr (Effexor XR) 75 mg PO HS Mental Health/Anxiety 06/12/23
venlafaxine 75 mg capsule,extended release 24 hr (Effexor XR) 150 mg PO DAILY Mental Health/Anxiety 06/12/23
amiodarone 200 mg tablet 200 mg PO BID 06/24/23
guar gum 1 tbsp PO DAILY 06/24/23
midodrine 5 mg tablet 5 mg PO BID 06/24/23
Review of Systems
-
History Source: Patient and Family (Daughters Molly and Jeanne)
A 12 point ROS was completed and negative except as noted: Yes
Constitutional: Reports Fatigue; Denies Fever or Chills
EENT: Reports Other (Chronic dry mouth); Denies Sore Throat or Runny Nose
Respiratory: Denies Cough or Trouble Breathing
Cardiac: Denies Chest Pain, Diaphoresis, Palpitations or Syncope
Abdomen/GI: Reports Abdominal Pain, Nausea, Vomiting and Diarrhea (Watery brown); Denies Bloody Stools or Black Stools
: Denies Dysuria, Frequency, Flank Pain, Incontinence or Difficulty Voiding
Musculoskeletal: Denies Joint Pain or Edema
Skin: Denies Itching or Rash
Neurological: Reports Weakness (Generalized); Denies Dizzy or Headache
Endocrine: Reports No Symptoms
Hematologic/Lymphatic: Reports No Symptoms
Psych: Reports Calm
Physical Exam
Vital Signs
Vital Signs
Temp Pulse Resp BP Pulse Ox
98.3 F 124 32 112/79 99
06/24/23 16:48 06/24/23 22:00 06/24/23 22:00 06/24/23 22:00 06/24/23 22:00
Physical Exam
General: Comfortable and Conversant; No Pain, Fever or Chills
HEENT: NormoCephalic, Anicteric, PERRLA, [place] Conjunctivae, No Ptosis and Other (Dry oral mucosa)
Respiratory: Clear; No Wheezes, Rales or Rhonchi
Cardiac: S1/S2 and Irregular Rhythm (A-fib 107-117 bpm); No Murmur, Rub, Gallop or Peripheral Edema
Breast: Deferred by me
GI: Soft, Non Tender, Non Distended, Normal Bowel Sounds and No Hepatosplenomegaly
Rectal: Deferred by Provider
Genito-urinary: Deferred by me
Musculoskeletal: No Clubbing, No Cyanosis and No Edema
Skin: Warm, Dry and Rash
Neuro: AO x 3, No Motor Deficits, Nonfocal/grossly intact, Cranial Nerves Intact and No Sensory Deficits; No Slurred Speech, Facial Droop or Tremors
Psych: Calm
Laboratory Results
-
06/24/23 16:56
06/24/23 16:56
Laboratory Results
Lactic Acid 1.8 mmol/L (0.7-2.0) 06/24/23 19:53
Total Bilirubin 0.9 mg/dl (0.2-1.3) 06/24/23 16:56
AST 85 U/L (14-36) H 06/24/23 16:56
ALT 63 U/L (0-35) H 06/24/23 16:56
Alkaline Phosphatase 182 U/L (38-126) H 06/24/23 16:56
Troponin I 0.018 ng/ml 06/24/23 16:56
Data Reviewed
-
CT Scan: Report Reviewed by me
Lab Data: Labs Reviewed by me
Impression/Plan
-
Impression/plan:
Inpatient telemetry
#Sepsis 2/2 colitis entire colon
#Abdominal pain with diarrheal losses 2/2 colitis
5 days diarrhea watery, 3 episodes of vomiting
WBC 11.6 was 17.5 on 06/20/2023, HR 118, lactic acid pending
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 difficile, norovirus
-N.p.o.
-Contact precautions until stool cultures result
-IV Rocephin, IV Flagyl
-IV NSS [address]
CT abdomen pelvis: Mild diffuse circumferential wall thickening with mucosal hyperemia and submucosal edema involving the entire colon. Possible considerations include infectious or inflammatory colitis, or bowel
ischemia. No evidence of pneumatosis. Correlation recommended.
Trace ascites in the pelvis. No focal collection or abscess. No free air or perforation.
There is intraluminal contrast enhancement of the celiac and superior mesenteric arteries as well as inferior mesenteric arteries.
The, there is also the suggestion of plaque formation at the origin of the vessels with an element of stenosis.
Small bilateral pleural effusions. Stable hiatal hernia.
#MICHELE on CKD 3B secondary to diarrheal losses/gastroenteritis likely viral
Check stool culture, WBC, C. difficile
Creat 1.1 was 0.9 on discharge
-IV NSS 500 cc bolus given in ER, IV NSS at 70 cc an hour
-Follow BMP
#Hypovolemic hyponatremia
NA 126
-Urine sodium, urine Osmo
-IV NSS 500 cc bolus
#Permanent A-fib with elevated rate secondary to volume depletion
#Hx LBBB
HR 109-117 bpm
-Continue amiodarone 20 mg twice daily
-Continue metoprolol for rate control hold parameters
-Continue Xarelto 15 mg daily
#Acute on chronic transaminitis likely reactive
AST 85, ALT 63, alk phos 182
Follow CMP
-Hold statin
#Chronic heart failure with reduced EF
BNP greater than 22,000 increased from 17,000
-Hold Lasix 20 mg daily
-2D echo 04/16/2023: EF 41%, mild global hypokinesis, abnormal paradoxical septal motion consistent with left bundle branch block. Mild to moderate MR. Mild TR PAP 34 mmHg
Lexiscan nuclear stress test 03/21/2022: EF 42% no fixed or reversible defects
#Hx orthostatic hypotension
BP 112/79
-Continue compressive stockings
-Continue midodrine 5 mg p.o. twice daily
#Chronic anemia�microcytic
#Chronic iron deficiency anemia
Hgb 9.5 baseline appears 10.7
-Continue iron supplements
#HLD
Hold atorvastatin due to transaminitis
#GERD/hiatal hernia
-Continue omeprazole 40 mg daily
#Chronic peripheral neuropathy
-Continue Lamictal 25 mg p.o. twice daily
#Anxiety
-Continue Effexor 75 mg hs, lorazepam 0.5 mg twice daily
#Insomnia
-Continue Unisom 50 mg at bedtime
DVT prophylaxis
Continue WAISTLINE JOINER OVERLOCK Xarelto
DNR per patient with daughters Molly and Jeanne at bedside
[2023-06-24 22:38] LABS: Osmolality Urine 607 mOsm/kg (300-900)
[2023-06-24 22:41] LABS: Urine Sodium < 5 mmol/L (30-90)
--- NOTE | 2023-06-24 22:54 | W.PN.UPDATE ---
Update Note
Progress Note Update
This is an addendum to the H&P written by PRATEEK Antony on 06/24/2023.� Patient seen and examined independently with CRADLE SLIDE MAKER.
88-year-old female past medical history of HFrEF, permanent atrial fibrillation, hypertension, orthostatic hypotension, GERD/hiatal hernia, iron deficiency anemia, hyperlipidemia, chronic peripheral neuropathy, here for persistent diarrhea for 5
days with episode of vomiting associate with abdominal pain.
Patient with sepsis secondary to likely viral gastroenteritis.� Patient in atrial fibrillation with elevated heart rate and blood pressures in systolic 90s likely due to GI losses.� Hyponatremia likely secondary to GI losses.� Transaminitis could be
due to sepsis.�
Patient with elevated cardiac BNP of greater than 27,000 which is increased from 17,000 and she was recently admitted for A-fib with RVR and CHF exacerbation however this is likely due to sepsis as presentation is consistent with volume depletion.�
CT abdomen pelvis shows diffuse colitis.� NPO, IV fluids, check stool culture, C. difficile, norovirus, blood cultures, ceftriaxone/Flagyl. Continue to hold Lasix.�
[2023-06-24] MEDS: STERILE WATER FOR INJECTION 10 ML IV (23:06)
[2023-06-24] MEDS: ROCEPHIN 1000 MG IV (23:06)
[2023-06-24] MEDS: FLAGYL 500 MG 100 IV (23:17)
--- NOTE | 2023-06-25 | PTCARENOTE ---
Received pt from ED via stretcher. Admitted for acute colitis. Telemetry order> afib on monitor, afebrile, HR 120-130s, 112/70, pox 99% room air. No c/o pain. AAOx2 (off time) forgetful- bed alarm in place. Pt recently fell- precautions in place.
PMH and medications reviewed by this RN with pt and daughter, Mis. Plan of care discussed. Pt oriented to room. Call rosas within reach.
[2023-06-25] MEDS: NSS 1000 IV ×2 (00:14→14:04)
[2023-06-25 03:01] VITALS: BP 117/70
[2023-06-25 05:45] VITALS: BMI 23.5
[2023-06-25 06:00] VITALS: BMI 23.5
[2023-06-25] MEDS: THERAGRAN 1 TABLET PO (07:54)
[2023-06-25] MEDS: PROTONIX 40 MG PO (07:54)
[2023-06-25] MEDS: EFFEXOR XR 150 MG PO (07:54)
[2023-06-25] MEDS: ATIVAN 0.5 MG PO (07:54)
[2023-06-25] MEDS: FLAGYL 500 MG 100 IV (07:54)
[2023-06-25] MEDS: LAMICTAL 25 MG PO (07:55)
[2023-06-25] MEDS: TOPROL XL 25 MG PO (08:05)
[2023-06-25] MEDS: PACERONE 200 MG PO (08:05)
[2023-06-25] MEDS: ProAmatine 5 MG PO (08:05)
[2023-06-25 08:16] LABS: % Basophils 0.7 % (0-2); % Eosinophils 1.4 % (0-6); % Immature Granulocytes 0.8 % (0-0.5); % Monocytes 10.3 % (1.7-9.3); % Neutrophils 79.8 % (42.2-75.2); Absolute Basophils 0.1 10^3/uL (0-0.2); Absolute Eosinophils 0.2 10^3/uL (0-0.7); Absolute Immature Granulocytes 0.1 10^3/uL (0-0.05); Absolute Lymphocytes 0.9 10^3/uL (1.2-3.4); Absolute Monocytes 1.3 10^3/uL (0.1-0.6); Absolute Neutrophils 10.3 10^3/uL (1.4-6.5); Hematocrit 30.3 % (37.0-47.0); Hemoglobin 9.9 g/dL (12.0-16.0); Mean Corp Hgb Conc. 32.7 g/dL (33.0-37.0); Mean Corpuscular Hgb 25.4 pg (27.0-31.0); Mean Corpuscular Volume 77.9 fL (81.0-99.0); Nucleated Red Blood Cells % 0 %; Red Blood Cell Count 3.89 10^6/uL (4.20-5.40); Red Cell Dist. Width 19.2 % (11.5-14.5); White Blood Cell Count 12.9 10^3/uL (4.8-10.8)
--- NOTE | 2023-06-25 09:20 | W.PN.HOSP.TC ---
Addendum entered and electronically signed by Davi Mitchell MD 06/25/23 17:07:
Pt passed with both dgts at side at 1610
Addendum entered and electronically signed by Davi Mitchell MD 06/25/23 16:08:
Discussed with 2 daughters, Molly and Jeanne. Patient has previously expressed wish that if she becomes ill, to stop intervention and just keep her comfortable, she wishes to join her (who passed 8 yrs ago) in [facility]. Dgts wish to honor
her previous request and as such would like to place on comfort care
orders placed
Addendum entered and electronically signed by Dvai Mitchell MD 06/25/23 14:10:
#1 Diarrhea with cramping
stools are Antigen pos, toxin neg. Has had 3 BM today, will order oral Vanco and follow, consider GI consult. Check stool for WBC
#2 Hyponatremia hypovolemia
will increase IVF rate to 100 cc/hr
#3 A. fib with rvr
heart rate >130, did not slow with IVF, will start Cardizem drip. Will move to higher level now.
reviewed with dgt
call placed to discuss with cardio
Original Note:
Today's Communication/Plan
-
cautiously advance diet
check Norovirus
consider GI consult
Ceftriaxone/Flagyl ordered, will continue for now, pending further information/progression
Assessment / Plan
Assessment / Plan
#MICHELE on CKD 3B secondary to diarrheal losses/gastroenteritis likely viral
Check stool culture,
WBC 11.6-->12.9
C. difficile
antigen, toxin negative
BUN/Creat (was 29/0.9 on discharge) 46/1.1
-IV NSS 500 cc bolus given in ER, continue IV NSS at 70 cc an hour
Pt was NPO, will allow clear liquids and advance diet as tolerates
-Follow BMP
#Hypovolemic hyponatremia
NA 126
-Urine sodium, urine Osmo
-IV NSS 500 cc bolus
#Permanent A-fib with elevated rate secondary to volume depletion
#Hx LBBB
HR 109-117 bpm
-Continue amiodarone 200 mg twice daily
-Continue metoprolol for rate control hold parameters
-Continue Xarelto 15 mg daily
#Acute on chronic transaminitis likely reactive
AST 85, ALT 63, alk phos 182
Follow CMP
-Hold statin
#Chronic heart failure with reduced EF
BNP greater than 22,000 increased from 17,000
-Hold Lasix 20 mg daily
-2D echo 04/16/2023: EF 41%, mild global hypokinesis, abnormal paradoxical septal motion consistent with left bundle branch block. Mild to moderate MR. Mild TR PAP 34 mmHg
Lexiscan nuclear stress test 03/21/2022: EF 42% no fixed or reversible defects
#Hx orthostatic hypotension
BP 112/79
-Continue compressive stockings
-Continue midodrine 5 mg p.o. twice daily
#Chronic anemia�microcytic
#Chronic iron deficiency anemia
Hgb 9.5 baseline appears 10.7
-Continue iron supplements
#HLD
Hold atorvastatin due to transaminitis
#GERD/hiatal hernia
-Continue omeprazole 40 mg daily
#Chronic peripheral neuropathy
-Continue Lamictal 25 mg p.o. twice daily
#Anxiety
-Continue Effexor 75 mg hs, lorazepam 0.5 mg twice daily
#Insomnia
-Continue Unisom 50 mg at bedtime
DVT prophylaxis
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
As per Dr. Arreola, DNR per patient with daughters Molly and Jeanne at bedside
Anticipated Discharge: > 48 hours
Subjective/Interval History
-
Date of Service: June 25, 2023
2 BM's during night, none yet this morning, no vomiting
Objective Data
-
Labs:
Laboratory Results
06/25/23 06/25/23
07:19 09:12
WBC 12.9 H
Hgb 9.9 L
Hct 30.3 L
Plt Count Pending
Sodium Cancelled Pending
Potassium Cancelled Pending
Chloride Cancelled Pending
Carbon Dioxide Cancelled Pending
BUN Cancelled Pending
Creatinine Cancelled Pending
Glucose Cancelled Pending
Calcium Cancelled Pending
Total Bilirubin Cancelled Pending
AST Cancelled Pending
ALT Cancelled Pending
Alkaline Phosphatase Cancelled Pending
Vital Signs:
Vital Signs
Temp Pulse Resp BP Pulse Ox
98.2 F 133 18 126/72 98
06/25/23 08:06 06/25/23 08:05 06/25/23 08:06 06/25/23 08:05 06/25/23 08:06
I&O
06/24/23 06/25/23 06/26/23
06:59 06:59 06:59
Intake Total 490 / 490
Balance 490 / 490
Review of Systems
-
History Source: Patient and Coordinated Provider
Constitutional: Denies Fever
EENT: Reports No Symptoms Reported
Respiratory: Reports No Symptoms
Cardiac: Reports No Symptoms
Abdomen/GI: Reports Abdominal Pain; Denies Nausea (pt is thirsty, asking for fluids to drink) or Vomiting (prior to admission, none this morning)
Physical Exam
-
General: Well Developed, Well Nourished and No Apparent Distress
HEENT: Normocephalic, Atraumatic and Moist Mucous Membranes
Respiratory: Clear to Auscultation; Negative Wheezes, Rales or Rhonchi
Cardiac: Regular Rhythm and S1/S2
GI: Soft, Nondistended, Normal Bowel Sounds and Tender (mildly tender)
[2023-06-25 09:59] LABS: ALT (SGPT) 96 U/L (0-35); AST (SGOT) 92 U/L (14-36); Albumin 3.1 g/dl (3.5-5.0); Alkaline Phosphatase 223 U/L (38-126); Blood Urea Nitrogen 43 mg/dl (7-17); Calcium 8.4 mg/dl (8.4-10.2); Carbon Dioxide 19 mmol/L (22-30); Chloride 98 mmol/L (98-107); Estimated Creatinine Clearance 35 ml/min; Glucose 99 mg/dl (70-99); Sodium 127 mmol/L (135-145); Total Bilirubin 0.6 mg/dl (0.2-1.3); Total Protein 5.8 g/dl (6.3-8.2); eGFR 54.87
[2023-06-25 10:11] LABS: Mean Platelet Volume 12.1 fL (7.4-10.4); Platelet Count 365 10^3/uL (130-400)
--- NOTE | 2023-06-25 11:23 | CM ---
Initial assessment completed with daughter with patient in room. Patient was recently admitted and discharged from on 06/12/23 to 06/14/23 for new onset CHF. She lives with her daughter in a 2 story home with bedroom and 1/2 bath on and full
bath on . There is a basement. 4 steps to enter home with a left sided rail. Prior to previous admission patient was independent in ADL's, did not use any DME for mobility and did not have in-home services. Prior to the present admission
patient has in-home services for PT and VN with [facility]. No DME for mobility. She does have RTS and grab bars in bathroom. No psychiatric history. Pharmacy is [facility] on [address] [facility] in [place] and PCP is Dr. Pardeep Huffman. Discharge Plan of
Care: On initial assessment, OT recommending SNF. Medicare[employer] list given to daughter for area code.
--- NOTE | 2023-06-25 11:27 | VNURNOTE ---
Patient is current with [facility] since 06/15 w/ SN/PT, will monitor progress and plan at discharge.
[2023-06-25 11:47] VITALS: BMI 23.8
[2023-06-25 12:00] VITALS: BP 110/51
--- NOTE | 2023-06-25 12:00 | PTCARENOTE ---
Daughter informed this RN that pt weight at home was 134 lb. Today pt weight 138 lb. BNP >53529. Home po lasixs on hold by . made aware of weight gain. No new orders at this time.
--- NOTE | 2023-06-25 13:00 | PTCARENOTE ---
Pt. HR now sustaining in 150s. UAF on monitor. made aware. Bp stable. Pt c/o of SOB. Pt sats are 98% on RA. 2L placed for comfort. No new orders at this time.
--- NOTE | 2023-06-25 13:30 | PTCARENOTE ---
This RN asked MD to come assess patient at bedside.
[2023-06-25 13:32] VITALS: BP 126/72
--- NOTE | 2023-06-25 14:16 | RR ---
Pt having SOB and states 'I cannot breathe' and HR sustaining in 150s in UAF on tele monitor. no c/o of CP. at bedside. A Rapid Response was called on this patient, please see Rapid Response form.
[2023-06-25 14:20] LABS: Glucose - Point of Care 158 mg/dl (70-99)
[2023-06-25] MEDS: LASIX 40 MG IV (14:46)
--- NOTE | 2023-06-25 15:08 | PTCARENOTE ---
Pt. transferred to IMU. Report given to Vonnie REESE.
[2023-06-25 15:18] VITALS: BP 95/34
[2023-06-25 15:24] LABS: Hemoglobin 10.7 g/dL (12.0-16.0); Mean Corp Hgb Conc. 31.5 g/dL (33.0-37.0); Mean Corpuscular Hgb 25.5 pg (27.0-31.0); Mean Corpuscular Volume 81.1 fL (81.0-99.0); Mean Platelet Volume 11.8 fL (7.4-10.4); Platelet Count 389 10^3/uL (130-400); Red Blood Cell Count 4.19 10^6/uL (4.20-5.40); Red Cell Dist. Width 20.1 % (11.5-14.5); White Blood Cell Count 15.4 10^3/uL (4.8-10.8)
[2023-06-25 15:28] VITALS: BP 112/93
[2023-06-25 15:35] LABS: Blood Urea Nitrogen 42 mg/dl (7-17); Calcium 8.5 mg/dl (8.4-10.2); Carbon Dioxide 8 mmol/L (22-30); Chloride 97 mmol/L (98-107); Estimated Creatinine Clearance 25 ml/min; Glucose 138 mg/dl (70-99); Potassium 5.2 mmol/L (3.5-5.1); Sodium 127 mmol/L (135-145); eGFR 36.64
[2023-06-25 15:39] LABS: APTT 30.8 Sec (23.4-35.0); INR 2.11; NT-proBNP > 27000 pg/ml; PT 23.9 Sec (11.4-14.6)
--- NOTE | 2023-06-25 15:44 | CON.CAR ---
Medical History
Allergies / Home Medications
Allergy/AdvReac Type Severity Reaction Status Date / Time
bacitracin [From Neosporin] Allergy MAKES WORSE Verified 06/24/23 17:10
bacitracin zinc Allergy MAKES WORSE Verified 06/24/23 17:10
[From Neosporin]
gramicidin D [From Neosporin] Allergy MAKES WORSE Verified 06/24/23 17:10
neomycin sulfate Allergy MAKES WORSE Verified 06/24/23 17:10
[From Neosporin]
Penicillins Allergy SWELLING,LUMPS-AGE Verified 06/24/23 17:10
16
polymyxin B [From Neosporin] Allergy MAKES WORSE Verified 06/24/23 17:10
polymyxin B sulfate Allergy MAKES WORSE Verified 06/24/23 17:10
[From Neosporin]
Sulfa (Sulfonamide Allergy Unknown Verified 06/24/23 17:10
Antibiotics)
�Medication �Instructions �Recorded �Confirmed �Type
atorvastatin 10 mg tablet 10 mg PO HS High Cholesterol 10/01/18 06/24/23 History
lorazepam 0.5 mg tablet 0.5 mg PO BID Mental Health/Anxiety 10/01/18 06/24/23 History
rivaroxaban 15 mg tablet (Xarelto) 15 mg PO HS Blood Clot 10/01/18 06/24/23 History
Prevention/Tx
doxylamine succinate 25 mg tablet 50 mg PO HS Sleep 06/12/23 06/24/23 History
(Unisom (doxylamine))
lamotrigine 25 mg tablet (Lamictal) 25 mg PO BID Neurological Condition 06/12/23 06/24/23 History
metoprolol succinate 50 mg 25 mg PO BID Blood Pressure 06/12/23 06/24/23 History
tablet,extended release 24 hr
(Toprol XL)
omeprazole magnesium 20 mg 40 mg PO DAILY Gastrointestinal 06/12/23 06/24/23 History
tablet,delayed release Issue
therapeutic multivitamin 1 tab PO DAILY Supplement 06/12/23 06/24/23 History
venlafaxine 75 mg capsule,extended 75 mg PO HS Mental Health/Anxiety 06/12/23 06/24/23 History
release 24 hr (Effexor XR)
venlafaxine 75 mg capsule,extended 150 mg PO DAILY Mental 06/12/23 06/24/23 History
release 24 hr (Effexor XR) Health/Anxiety
amiodarone 200 mg tablet 200 mg PO BID Arrhythmia 06/24/23 06/24/23 History
guar gum 1 tbsp PO DAILY Constipation 06/24/23 06/24/23 History
midodrine 5 mg tablet 5 mg PO BID Blood Pressure 06/24/23 06/24/23 History
Physical Exam
Vital Signs
Temp Pulse Resp BP Pulse Ox
99.8 F 150 32 126/72 98
06/25/23 13:32 06/25/23 13:32 06/25/23 13:32 06/25/23 13:32 06/25/23 13:32
Lab Results
06/25/23 15:01
06/25/23 15:01
Troponin I 0.018 ng/ml 06/24/23 16:56
Rsh-T-Mbctianynwp Pept > 84234 pg/ml 06/25/23 15:01
--- NOTE | 2023-06-25 15:49 | PTCARENOTE ---
Pt brought to IMU pupils dlilated R greater than L . Afib hr 105 BP 112/ 93. Pt very lethargic and agitated .Spoke with family pt has living will and wants mother made comfortable. Restless in bed. Dr Mitchell tt called back relayed message he spoke
with daughter and told daughter he would call me back in 5 mins
--- NOTE | 2023-06-25 16:22 | PTCARENOTE ---
DR Mitchell called putting pt on Comfort ordered Mosphine. Pt heart rate falling to 40 ran in room pt aganol breathing . daughters at bedside. Pt at 1610. [facility] care called Dr Mitchell aware
--- NOTE | 2023-06-25 17:07 | W.PN.DEATH ---
Pronouncement of
-
Called to see patient to pronounce.
No spontaneous heart tones or respirations noted.
Patient not responsive to verbal stimuli.
Patient is pronounced .
Time of : 16:10
Date of : 06/25/23
Cause of : Acute Infectious Diarrhea
Family Notified: Yes
--- NOTE | 2023-06-25 17:57 | PTCARENOTE ---
post mortem care done GOL called
== END 2023-06-25 18:32 | disposition expired | DRG 872 ==
LOC: IMU 22:49
PROVIDERS: Clinical Nurse Specialist Family Health; ADMITTING PHYSICIAN Hospitalist; ATTENDING PHYSICIAN Internal Medicine; EMERGENCY PHYSICIAN Emergency Medicine; FAMILY PHYSICIAN Internal Medicine
DX: A41.9 Sepsis, unspecified organism (principal); A09 Infectious gastroenteritis and colitis, unspecified; N17.9 Acute kidney failure, unspecified; I13.0 Hypertensive heart and chronic kidney disease with heart failure and stage 1 through stage 4 chronic kidney disease, or unspecified chronic kidney disease; E87.1 Hypo-osmolality and hyponatremia; I48.21 Permanent atrial fibrillation; I50.22 Chronic systolic (congestive) heart failure; N39.0 Urinary tract infection, site not specified; F17.210 Nicotine dependence, cigarettes, uncomplicated; N18.32 Chronic kidney disease, stage 3b; E86.1 Hypovolemia; E86.0 Dehydration; I44.7 Left bundle-branch block, unspecified; Z79.01 Long term (current) use of anticoagulants; D50.9 Iron deficiency anemia, unspecified; E78.5 Hyperlipidemia, unspecified; K21.9 Gastro-esophageal reflux disease without esophagitis; K44.9 Diaphragmatic hernia without obstruction or gangrene; F41.9 Anxiety disorder, unspecified; G62.9 Polyneuropathy, unspecified; G47.00 Insomnia, unspecified; Z66 Do not resuscitate; Z51.5 Encounter for palliative care
CPT/HCPCS: 71045; 74177; 80048; 80053; 81003; 81015; 82962; 83605; 83880; 83935; 84300; 84484; 85025; 85027; 85610; 85730; 87040; 87045; 87046; 87077; 87086; 87186; 87324; 87427; 87449; 87798; 93005; 96360; 96361; 97167; 99285; Q9967